=== PATIENT | male | born 1960 | race American Indian/Alaskan Native ===

== ENCOUNTER → 2019-06-15 15:11 | Outpatient (CLI) | payer MEDICARE, OTHER, SELFPAY ==
--- NOTE | 2019-06-15 15:16 | DI.RAD.S_ITS ---
PROCEDURE: XR LUMBAR SPINE MIN 4V INDICATIONS: Chronic progressive low back pain left lower extremity sympt TECHNIQUE: 5 total views of the lumbar spine were acquired, including bilateral oblique views. COMPARISON: [facility], MR, MR LUMBAR SPINE WO CON, 06/15/2019, 15:22. [facility], RG, XR L-SPINE 2-3V, 04/09/2019, 16:01. FINDINGS: Bones: 5 nonrib-bearing vertebrae are present. There is normal bony alignment. No vertebral body compression fractures. No suspicious bony lesions. The disc heights are well-preserved. Endplate irregularity and sclerosis are seen, which are most prominent at L4-L5. Lower lumbar spine facet arthropathy is seen. Soft tissues: Overlying bowel gas pattern is normal. No suspicious soft tissue calcifications. Oblique images: No pars defects. IMPRESSION: Age-appropriate lower lumbar spine degenerative changes are seen plain films. No pars defects are seen oblique images. Dictated by: Adi Bland M.D. on 06/15/2019 at 15:45 Approved by: Adi Bland M.D. on 06/15/2019 at 15:46
--- NOTE | 2019-06-15 15:16 | DI.MRI.S_ITS ---
PROCEDURE: MR LUMBAR SPINE WO CON INDICATIONS: Chronic progressive low back pain left lower extremity sympt TECHNIQUE: Noncontrast sagittal T1 spin echo and T2 fast echo, sagittal STIR, axial T1 and T2 fast spin echo through the lumbar spine. In cases with scoliosis, additional coronal T2 fast spin echo may be performed. COMPARISON: [facility], CR, XR LUMBAR SPINE MIN 4V, 06/15/2019, 15:47. FINDINGS: Image quality: Excellent. Alignment and Curvature: There is normal bony alignment. Bone Marrow: Marrow is of normal overall signal. No acute vertebral body compression fractures. Spinal Cord: Conus medullaris terminates at the L1 level. Visualized cord demonstrates normal signal and size. Paraspinous Soft Tissues: No paravertebral masses. T12-L1: No canal stenosis or foraminal stenosis. Facet joints are unremarkable. L1-L2: Normal appearance. L2-L3: No canal stenosis or foraminal stenosis. Mild facet hypertrophy. L3-L4: Prominent bilateral facet hypertrophy results in mild to moderate canal stenosis. There is moderate right foraminal narrowing with mild flattening deformity upon the exiting right L3 nerve root. L4-L5: Posterior disc bulge and facet and ligament hypertrophy result in moderate canal stenosis. There is mild bilateral foraminal narrowing. L5-S1: There is prominent bilateral facet hypertrophy. There is no canal stenosis. There is mild right foraminal narrowing. IMPRESSION: 1. Canal stenosis is mild to moderate at L3-4 and moderate at L4-5. 2. Multilevel facet arthropathy. 3. Moderate right foraminal narrowing at L3-L4. Dictated by: Raymond Balbuena M.D. on 06/16/2019 at 20:00 Approved by: Raymond Balbuena M.D. on 06/16/2019 at 20:04
== END ==
PROVIDERS: Visit Provider Physical Medicine & Rehabilitation
DX: M54.5 Low back pain (principal); M47.816 Spondylosis without myelopathy or radiculopathy, lumbar region; M48.061 Spinal stenosis, lumbar region without neurogenic claudication; G89.29 Other chronic pain; Z87.828 Personal history of other (healed) physical injury and trauma
CPT/HCPCS: 72110; 72148

== ENCOUNTER 2019-08-08 14:43 | Outpatient (CLI) | payer MEDICARE, OTHER, SELFPAY ==
[2019-08-08] VITALS (9 sets, daily range): BP systolic 131–153; BP diastolic 60–96; PULSE 90–102; RESP 16; O2SAT 96–100
--- NOTE | 2019-08-08 14:52 | DI.RAD.S_ITS ---
PROCEDURE: PAIN L/S TRANSFORAMINAL INJECT INDICATIONS: SPONDYLOSIS FINDINGS: Fluoroscopic spot filming was performed to verify placement of spinal needles at the L4-L5 level(s), as labeled on the films. Appropriate location(s) of the needle tip(s) was confirmed by injection of iodinated contrast. Dictated by: Tom Kat M.D. on 08/08/2019 at 17:36 Approved by: Tom Kat M.D. on 08/08/2019 at 17:36
[2019-08-08] MEDS: MIDAZOLAM 5 MG/5 ML VIAL IV (15:49)
[2019-08-08] MEDS: DEXAMETHASONE 10 MG/ML VIAL 20 MG INJ (15:56)
[2019-08-08] MEDS: BETAMETHASONE 30 MG/5 ML MDV 6 MG INJ (15:56)
[2019-08-08] MEDS: BUPIVACAINE 0.25% (PF) VIAL 2 ML INJ (15:56)
[2019-08-08] MEDS: IOPAMIDOL 15 ML VIAL 3 ML INJ (15:56)
--- NOTE | 2019-08-08 16:01 | P.PCN_ITS ---
Procedures Date/Time Date of procedure: 08/08/19 Time of procedure: 16:01 General Procedure description: PREOP DIAGNOSIS 1. FORMAINAL STENOSIS WITH LE SYMPTOMS POST OP DIAGNOSIS 1. FORMAINAL STENOSIS WITH LE SYMPTOMS PROCEDURES 1. FLUOROSCOPICALLY GUIDED CONTRAST CONTROLLED TRANSFORAMINAL EPIDURAL STEROID INJECTION - LEFT L4/5 PHYSICIAN: Vern Alston DO INDICATIONS: Derrick is referred for treatment of Foraminal Stenosis with Left LE Symptoms FINDINGS Foraminal Nerve Root Compression secondary to disc disease and facet hypertrophy DESCRIPTION OF PROCEDURE: Following review of allergy and review of potential side effects and complications, including, but not necessarily limited to, infection, allergic reaction, local tissue breakdown, stroke, temporary or permanent nerve injury, paralysis, and possible , the patient indicated that the patient understood and agreed to proceed. An informed consent document was signed by the patient, witnessed by a nurse, and placed in the patient's chart. Additionally, other treatment options including medications, modalities, and physical therapy were reviewed with the patient. After review of previous anaesthesic history and IV conscious sedation the patient was deemed safe to proceed with todays procedure with IV conscious sedation as ASA class II designation. Safety time-out was performed to confirm patient ID, procedure to be performed and site of procedure. IV sedation was accomplished with 2mg of Versed administered by the RN after DO order, titrated to patient comfort during the course of the procedure while the patient remained responsive to all verbal commands In the prone position following sterile prep and drape of the lumbar region, the left L4/5 posterior neuroforamen was identified fluoroscopically. The skin was anesthetized via a 25-gauge 1.5-inch needle with 1% lidocaine solution. At this point, a 25-gauge 3.5-inch spinal needle was atraumatically introduced and advanced under fluoroscopic guidance through the posterior left L4/5 ne uroforamen to approximately the anterior aspect of the canal. Depth was confirmed on lateral view. Following negative aspiration, injection of approximately 1.5 cc of Isovue 200 under live fluoroscopy in the AP view confirmed excellent flow along the nerve root, into the epidural space without vascular or intrathecal uptake observed Radiological data, including multiple fluoroscopic views of the lumbosacral spine, reveal a spinal needle at the left L4/5 posterior neuroforamen. Subsequent views show flow of contrast material flowing superiorly and inferiorly along the nerve root confirming epidural flow. Subsequently, a test dose of 1.5 cc of 1% lidocaine solution was administered and patient was observed for two minutes for signs or symptoms of complications, including abdominal pain, shortness of breath, bilateral upper or lower extremity weakness, nausea and vomiting, prior to steroid injection. At this point, a total of 3cc or 20mg of dexamethasone and 6mg of betamethasone was injected without incident. The procedure tolerated the procedure well without signs or symptoms of complications prior to transfer to the recovery area continued monitoring without incident. The patient was then transferred to the recovery area where they were observed for an appropriate time after the injection. The patient reported a VAS score of 7 prior to the procedure and a post- procedure VAS of 0. Total Fluoroscopy Time: 20.9 seconds Total Conscious Sedation Time: 24min POST OP INSTRUCTIONS The patient was provided a Pain Log to continue to record their response to the target-specific procedure prior to follow-up visit with their referring physician. Additionally, specific post-injection care instructions and a contact number to our office were provided if concerns arise regarding possible complications associated with the procedure are suspected. Vern Alston DO Complications: none
--- NOTE | 2019-08-08 16:10 | PC.NURSE ---
Post procedure note: Patient tolerated procedure well. Medicated per providers orders. VSS throughout. Able to sit up and transfer to wheelchair with stand by assist. Denied any numbness or tingling. Handoff report given to Rafa King RN. VSS on arrival. at chairside.
--- NOTE | 2019-08-08 16:12 | PC.NURSE ---
ACCEPTED CARE OF PT IN POST PROC AREA IN STABLE CONDITION
== END 2019-08-08 16:29 | disposition home or self-care (01) ==
LOC: RAD 14:51
PROVIDERS: Visit Provider Physical Medicine & Rehabilitation
DX: M48.061 Spinal stenosis, lumbar region without neurogenic claudication (principal); M51.16 Intervertebral disc disorders with radiculopathy, lumbar region
CPT/HCPCS: 64483; 99152; J0702; J1100; J2250; J3010

== ENCOUNTER → 2019-08-27 17:10 | Outpatient (CLI) | payer MEDICARE, OTHER, SELFPAY ==
--- NOTE | 2019-08-27 17:14 | DI.RAD.S_ITS ---
PROCEDURE: XR HIP W PEL IF DONE LT MIN 4V INDICATIONS: right groin pain TECHNIQUE: AP pelvis with lateral view(s) of the bilateral hips (3 total images). COMPARISON: None. FINDINGS: Bones: No fractures or dislocations. Pelvic ring appears intact. No suspicious bony lesions. Soft tissues: The visualized bowel gas pattern is normal. No suspicious soft tissue calcifications. IMPRESSION: Symmetric mild hip joint osteoarthritis. Dictated by: Jack Parker M.D. on 08/28/2019 at 9:16 Approved by: Jack Parker M.D. on 08/28/2019 at 9:17
== END ==
PROVIDERS: Visit Provider Registered Nurse
DX: M25.551 Pain in right hip (principal); M16.0 Bilateral primary osteoarthritis of hip; M51.26 Other intervertebral disc displacement, lumbar region; M47.817 Spondylosis without myelopathy or radiculopathy, lumbosacral region; G89.29 Other chronic pain; Z87.828 Personal history of other (healed) physical injury and trauma
CPT/HCPCS: 73522; 99213

== ENCOUNTER → 2020-02-08 11:16 | Outpatient (CLI) | payer MEDICARE, OTHER, SELFPAY ==
[2020-02-09 07:55] LABS: COVID19 Sendout Not Detected (Not Detect)
== END ==
PROVIDERS: Visit Provider Nurse Practitioner
DX: Z01.812 Encounter for preprocedural laboratory examination (principal)
CPT/HCPCS: 87635

== ENCOUNTER 2020-02-11 12:20 | Outpatient (CLI) | payer MEDICARE, OTHER, SELFPAY ==
[2020-02-11] VITALS (11 sets, daily range): BP systolic 133–165; BP diastolic 60–129; PULSE 81–87; RESP 13–18; TEMP 36.2; O2SAT 97–100
--- NOTE | 2020-02-11 12:24 | DI.RAD.S_ITS ---
PROCEDURE: PAIN L INTERLAMINAR/CAUDAL INJ INDICATIONS: SPODYLOSIS FINDINGS: Fluoroscopic spot filming was performed to verify placement of spinal needles at the L4-5 level(s), as labeled on the films. Appropriate location(s) of the needle tip(s) was confirmed by injection of iodinated contrast. IMPRESSION: Successful needle tip localization at the dorsal paramedian L4-5 interlaminar level for epidural steroid injection. Dictated by: Jack Parker M.D. on 02/11/2020 at 14:34 Approved by: Jack Parker M.D. on 02/11/2020 at 14:34
[2020-02-11] MEDS: fentaNYL 100 MCG/2 ML INJ 50 MCG IV (13:12)
[2020-02-11] MEDS: MIDAZOLAM 5 MG/5 ML VIAL IV (13:12)
[2020-02-11] MEDS: BETAMETHASONE 30 MG/5 ML MDV 6 MG INJ (13:26)
[2020-02-11] MEDS: BUPIVACAINE 0.25% (PF) VIAL 2 ML INJ (13:26)
[2020-02-11] MEDS: DEXAMETHASONE 10 MG/ML VIAL 20 MG INJ (13:26)
[2020-02-11] MEDS: IOPAMIDOL 15 ML VIAL 3 ML INJ (13:26)
--- NOTE | 2020-02-11 13:30 | P.PCN_ITS ---
Date/Time/Diagnoses Date of procedure: 02/11/20 Time of procedure: 13:30 Pre-procedure diagnosis: 1. HNP WITH RADICULAR FEATURES, 2. MULTILEVEL CENTRAL STENOSIS, Post-procedure diagnosis: same Procedure Notes Procedure: 1. FLUOROSCOPICALLY GUIDED CONTRAST CONTROLLED INTERLAMINAR EPIDURAL STEROID INJECTION -L4/5 Indications: Derrick is referred for treatment of HNP with R>L LE symptoms. Physician: Vern Alston Total Fluoroscopy time (seconds): 12 Total sedation minutes: 24 Complications: none Procedure in detail & Post-procedure care: FINDINGS Multilevel Central Spinal Stenosis with Nerve Root Compression DESCRIPTION OF PROCEDURE Fluoroscopically guided, contrast-controlled L4/5 translaminar epidural steroid injection. Following review of allergy and review of potential side effects and complications, including, but not necessarily limited to, infection, allergic reaction, local tissue breakdown, temporary as well as permanent nerve injury, paralysis, stroke and possible , the patient indicated that the patient understood and agreed to proceed. An informed consent document was signed by the patient, witnessed by a nurse, and placed in the patient's chart. Additionally, other treatment options including modalities, medications, and physical therapy were reviewed with the patient. After review of previous anaesthesic history and IV conscious sedation the patient was deemed safe to proceed with today?s procedure with IV conscious sedation as ASA class II designation. Safety time-out was performed to confirm patient ID, procedure to be performed and site of procedure. IV sedation was accomplished with a combination of 1mg of Versed and 50mcg of Fentanyl was administered by the RN after DO order, titrated to patient comfort during the course of the procedure while the patient remained responsive to all verbal commands In the prone position, following sterile prep and drape of the lumbar region, the L4/5 translaminar space was identified fluoroscopically. The skin was anesthetized via a 25-gauge, 1.5-inch needle with 1% lidocaine solution. At this point, a 22-gauge short bevel spinal needle was atraumatically introduced and advanced under fluoroscopic guidance into the region of the L4/5 translaminar space. Depth was confirmed on lateral view. Radiological data, including multiple fluoroscopic views of the lumbar spine, reveal a spinal needle at the L4/5 translaminar space. Lateral views then show placement of the needle in the epidural space. Subsequent views show contrast material flowing superiorly and inferiorly in the epidural space. No vascular or intrathecal uptake is observed. At this point, using loss of resistance technique with saline and air, the epidural space was entered. This was confirmed following negative aspiration with injection of approximately 1.5 cc of Isovue 200, showing excellent epidural flow without vascular or intrathecal uptake. At this point, 1 cc of 1% lidocaine solution combined with 3cc or 20mg of dexamethasone and 6mg betamethasone was injected without incident. The patient tolerated the procedure well without signs or symptoms of complications prior to transfer to the recovery area continued monitoring without incident. The patient was then transferred to the recovery area where they were observed for an appropriate period of time after the injection. The patient reported a VAS score of 10 prior to the procedure and a post- procedure VAS of 1. POST OP INSTRUCTIONS The patient was provided a Pain Log to continue to record their response to the target-specific procedure prior to follow-up visit with their referring physician. Additionally, specific post-injection care instructions and a contact number to our office were provided if concerns arise regarding possible complications associated with the procedure are suspected.
--- NOTE | 2020-02-11 13:58 | PC.NURSE ---
1335: pt returned to preproc room via wc, stable transfer from wc to chair. Resumed monitoring by LAYLA Aleman
--- NOTE | 2020-02-11 14:21 | PC.NURSE ---
VSS stable upon transfer to LAYLA Aleman in post procedure room. Tolerate procedure well. All IV Fent and Versed given by LAYLA Lewis, all other medications by Dr. Alston.
== END 2020-02-11 14:05 | disposition home or self-care (01) ==
PROVIDERS: Referring Provider Physical Medicine & Rehabilitation; Visit Provider Physical Medicine & Rehabilitation
DX: M51.16 Intervertebral disc disorders with radiculopathy, lumbar region (principal); M48.061 Spinal stenosis, lumbar region without neurogenic claudication
CPT/HCPCS: 62323; 99152; J0702; J1100; J2250; J3010

== ENCOUNTER → 2020-05-23 11:50 | Outpatient (CLI) | payer MEDICARE, OTHER, SELFPAY ==
[2020-05-25 05:57] LABS: COVID19 Sendout Not Detected (Not Detect)
== END ==
PROVIDERS: PCP Family Medicine; Visit Provider Physician Assistant
DX: Z01.812 Encounter for preprocedural laboratory examination (principal)
CPT/HCPCS: 87635

== ENCOUNTER 2020-05-26 09:32 | Outpatient (CLI) | payer MEDICARE, OTHER, SELFPAY ==
[2020-05-26] VITALS (7 sets, daily range): BP systolic 120–153; BP diastolic 66–87; PULSE 71–79; RESP 15–19; TEMP 36.4; O2SAT 98–100
--- NOTE | 2020-05-26 09:34 | DI.RAD.S_ITS ---
PROCEDURE: PAIN L INTERLAMINAR/CAUDAL INJ INDICATIONS: SPONDYLOSIS COMPARISON: [facility], XA, PAIN L INTERLAMINAR/CAUDAL INJ, 02/11/2020, 12:17. FINDINGS: Fluoroscopic spot filming was performed to verify placement of spinal needles at the L4-L5 interlaminar level(s), as labeled on the films. Appropriate location(s) of the needle tip(s) was confirmed by injection of iodinated contrast. IMPRESSION: Successful needle tip localization for L4-L5 translaminar epidural steroid injection. Dictated by: Jack Parker M.D. on 05/26/2020 at 11:14 Approved by: Jack Parker M.D. on 05/26/2020 at 11:14
[2020-05-26] MEDS: IOPAMIDOL 15 ML VIAL 3 ML INJ (10:36)
[2020-05-26] MEDS: DEXAMETHASONE 10 MG/ML VIAL 20 MG INJ (10:37)
[2020-05-26] MEDS: BUPIVACAINE 0.25% (PF) VIAL 2 ML INJ (10:37)
[2020-05-26] MEDS: BETAMETHASONE 30 MG/5 ML MDV 6 MG INJ (10:37)
--- NOTE | 2020-05-26 10:47 | P.PCN_ITS ---
Date/Time/Diagnoses Date of procedure: 05/26/20 Time of procedure: 10:47 Pre-procedure diagnosis: 1. HNP WITH RADICULAR FEATURES, 2. MULTILEVEL CENTRAL STENOSIS, Post-procedure diagnosis: same Procedure Notes Procedure: 1. FLUOROSCOPICALLY GUIDED CONTRAST CONTROLLED INTERLAMINAR EPIDURAL STEROID INJECTION -L4/5 Indications: Derrick is referred by Dr. Naik for treatment of Bilateral Foraminal Stenosis R>L LE symptoms. Physician: Vern Alston Total Fluoroscopy time (seconds): 8 Total sedation minutes: 0 Complications: none Procedure in detail & Post-procedure care: FINDINGS Multilevel Central Spinal Stenosis with Nerve Root Compression DESCRIPTION OF PROCEDURE Fluoroscopically guided, contrast-controlled L4/5 translaminar epidural steroid injection. Following review of allergy and review of potential side effects and complications, including, but not necessarily limited to, infection, allergic reaction, local tissue breakdown, temporary as well as permanent nerve injury, paralysis, stroke and possible , the patient indicated that the patient understood and agreed to proceed. An informed consent document was signed by the patient, witnessed by a nurse, and placed in the patient's chart. Additionally, other treatment options including modalities, medications, and physical therapy were reviewed with the patient. After review of previous anaesthesic history and IV conscious sedation the patient was deemed safe to proceed with today?s procedure with IV conscious sedation as ASA class II designation. Safety time-out was performed to confirm patient ID, procedure to be performed and site of procedure. IV sedation was deemed unnecessary and thus not administered by the RN after DO order, titrated to patient comfort during the course of the procedure while the patient remained responsive to all verbal commands In the prone position, following sterile prep and drape of the lumbar region, the L4/5 translaminar space was identified fluoroscopically. The skin was anesthetized via a 25-gauge, 1.5inch needle with 1% lidocaine solution. At this point, a 22-gauge short bevel spinal needle was atraumatically introduced and advanced under fluoroscopic guidance into the region of the L4/5 translaminar space. Depth was confirmed on lateral view. Radiological data, including multiple fluoroscopic views of the lumbar spine, reveal a spinal needle at the L4/5 translaminar space. Lateral views then show placement of the needle in the epidural space. Subsequent views show contrast material flowing superiorly and inferiorly in the epidural space. No vascular or intrathecal uptake is observed. At this point, using loss of resistance technique with saline and air, the epidural space was entered. This was confirmed following negative aspiration with injection of approximately 1.5cc of Isovue 200, showing excellent epidural flow without vascular or intrathecal uptake. At this point, 1cc of 1% lidocaine solution combined with 3cc or 20mg of dexamethasone and 6mg betamethasone was injected without incident. The patient tolerated the procedure well without signs or symptoms of complications prior to transfer to the recovery area continued monitoring without incident. The patient was then transferred to the recovery area where they were observed for an appropriate period of time after the injection. The patient reported a VAS score of 6 prior to the procedure and a post- procedure VAS of 0. POST OP INSTRUCTIONS The patient was provided a Pain Log to continue to record their response to the target-specific procedure prior to follow-up visit with their referring physician. Additionally, specific post-injection care instructions and a contact number to our office were provided if concerns arise regarding possible complications associated with the procedure are suspected.
== END 2020-05-26 11:00 | disposition home or self-care (01) ==
LOC: RAD 09:33
PROVIDERS: PCP Family Medicine; Referring Provider Physical Medicine & Rehabilitation; Visit Provider Physical Medicine & Rehabilitation
DX: M51.16 Intervertebral disc disorders with radiculopathy, lumbar region (principal); M48.061 Spinal stenosis, lumbar region without neurogenic claudication
CPT/HCPCS: 62323; 99152; J0702; J1100; J2250; J3010

== ENCOUNTER → 2020-08-31 11:34 | Outpatient (CLI) | payer MEDICARE, OTHER, SELFPAY ==
--- NOTE | 2020-08-31 11:36 | DI.RAD.S_ITS ---
PROCEDURE: XR LUMBAR SPINE MIN 4V INDICATIONS: low back pain TECHNIQUE: 4 views of the lumbar spine were acquired. COMPARISON: [facility], , XR LUMBAR SPINE MIN 4V, 06/15/2019, 15:47. FINDINGS: Bones: No fracture. Multilevel degenerative endplate sclerosis and spurring. Diffuse facet arthropathy. Trace retrolisthesis of L4 on L5, unchanged. Diffuse mild narrowing of the lumbar disc spaces. Bilateral hip joint degeneration. Soft tissues: Multiple sub 5 mm calcifications project in the region of the left kidney suggestive of nephrolithiasis Oblique images: No pars defects. IMPRESSION: Unchanged appearance of multilevel lumbar spondylosis and facet arthropathy since 06/15/19. Left nephrolithiasis Dictated by: Tom Kat M.D. on 08/31/2020 at 12:00 Approved by: Tom Kat M.D. on 08/31/2020 at 12:01
== END ==
PROVIDERS: PCP Family Medicine; Referring Provider Physical Medicine & Rehabilitation; Visit Provider Physical Medicine & Rehabilitation
DX: M47.816 Spondylosis without myelopathy or radiculopathy, lumbar region (principal); N20.0 Calculus of kidney; M51.26 Other intervertebral disc displacement, lumbar region; M47.817 Spondylosis without myelopathy or radiculopathy, lumbosacral region; M25.551 Pain in right hip; G89.29 Other chronic pain; M25.512 Pain in left shoulder; Z87.828 Personal history of other (healed) physical injury and trauma; M25.50 Pain in unspecified joint; Z68.33 Body mass index [BMI] 33.0-33.9, adult
CPT/HCPCS: 72110; 99213

== ENCOUNTER → 2020-10-06 13:32 | Outpatient (CLI) | payer MEDICARE, OTHER, SELFPAY ==
[2020-10-06 14:00] LABS: COVID19 -Nasal RAPID Negative (Negative)
== END ==
PROVIDERS: PCP Family Medicine; Visit Provider Physical Medicine & Rehabilitation
DX: Z20.822 Contact with and (suspected) exposure to COVID-19 (principal)
CPT/HCPCS: 87635; C9803

== ENCOUNTER 2020-10-08 12:30 | Outpatient (CLI) | payer MEDICARE, OTHER, SELFPAY ==
[2020-10-08 12:57] VITALS: BP 135/87; PULSE 84; RESP 19; TEMP 36.6; O2SAT 98
[2020-10-08 13:00] VITALS: BP 134/75; PULSE 86; RESP 16; O2SAT 97
[2020-10-08 13:05] VITALS: BP 130/70; PULSE 81; RESP 20; O2SAT 95
[2020-10-08] MEDS: IOPAMIDOL 15 ML VIAL 3 ML INJ (13:09)
[2020-10-08 13:10] VITALS: BP 132/76; PULSE 82; RESP 20; O2SAT 96
[2020-10-08] MEDS: BUPIVACAINE 0.25% (PF) VIAL 2 ML INJ (13:10)
[2020-10-08] MEDS: methylPREDNISolone acetate 80 MG/ML VIAL INJ (13:10)
[2020-10-08] MEDS: DEXAMETHASONE 10 MG/ML VIAL 20 MG INJ (13:10)
--- NOTE | 2020-10-08 13:18 | P.PCN_ITS ---
Date/Time/Diagnoses Date of procedure: 10/08/20 Time of procedure: 13:18 Pre-procedure diagnosis: 1. HNP WITH RADICULAR FEATURES, 2. MULTILEVEL CENTRAL STENOSIS, Post-procedure diagnosis: same Procedure Notes Procedure: 1. FLUOROSCOPICALLY GUIDED CONTRAST CONTROLLED INTERLAMINAR EPIDURAL STEROID INJECTION -L4/5 Indications: Derrick is referred by Dr. Naik for treatment of Bilateral Foraminal Stenosis R>L LE symptoms. Physician: Vern Alston Total Fluoroscopy time (seconds): 6 Total sedation minutes: 0 Complications: none Procedure in detail & Post-procedure care: FINDINGS Multilevel Central Spinal Stenosis with Nerve Root Compression DESCRIPTION OF PROCEDURE Fluoroscopically guided, contrast-controlled L4/5 translaminar epidural steroid injection. Following review of allergy and review of potential side effects and complications, including, but not necessarily limited to, infection, allergic reaction, local tissue breakdown, temporary as well as permanent nerve injury, paralysis, stroke and possible , the patient indicated that the patient understood and agreed to proceed. An informed consent document was signed by the patient, witnessed by a nurse, and placed in the patient's chart. Additionally, other treatment options including modalities, medications, and physical therapy were reviewed with the patient. After review of previous anaesthesic history and IV conscious sedation the patient was deemed safe to proceed with today?s procedure with IV conscious sedation as ASA class II designation. Safety time-out was performed to confirm patient ID, procedure to be performed and site of procedure. IV sedation was deemed unnecessary and thus not administered by the RN after DO order, titrated to patient comfort during the course of the procedure while the patient remained responsive to all verbal commands In the prone position, following sterile prep and drape of the lumbar region, the L4/5 translaminar space was identified fluoroscopically. The skin was anesthetized via a 25-gauge, 1.5inch needle with 1% lidocaine solution. At this point, a 22-gauge short bevel spinal needle was atraumatically introduced and advanced under fluoroscopic guidance into the region of the L4/5 translaminar space. Depth was confirmed on lateral view. Radiological data, including multiple fluoroscopic views of the lumbar spine, reveal a spinal needle at the L4/5 translaminar space. Lateral views then show placement of the needle in the epidural space. Subsequent views show contrast material flowing superiorly and inferiorly in the epidural space. No vascular or intrathecal uptake is observed. At this point, using loss of resistance technique with saline and air, the epidural space was entered. This was confirmed following negative aspiration with injection of approximately 1.5cc of Isovue 200, showing excellent epidural flow without vascular or intrathecal uptake. At this point, 1cc of 1% lidocaine solution combined with 3cc or 20mg of dexamethasone and 80mg depo medrol was injected without incident. The patient tolerated the procedure well without signs or symptoms of complications prior to transfer to the recovery area continued monitoring without incident. The patient was then transferred to the recovery area where they were observed for an appropriate period of time after the injection. The patient reported a VAS score of 7 prior to the procedure and a post- procedure VAS of 1. POST OP INSTRUCTIONS The patient was provided a Pain Log to continue to record their response to the target-specific procedure prior to follow-up visit with their referring physician. Additionally, specific post-injection care instructions and a contact number to our office were provided if concerns arise regarding possible complications associated with the procedure are suspected.
[2020-10-08 13:20] VITALS: BP 127/82; PULSE 85; RESP 19; O2SAT 98
--- NOTE | 2020-10-08 13:22 | DI.RAD.S_ITS ---
PROCEDURE: PAIN L INTERLAMINAR/CAUDAL INJ INDICATIONS: SPONDYLOSIS COMPARISON: [facility], XA, PAIN L INTERLAMINAR/CAUDAL INJ, 05/26/2020, 10:35. [facility], XA, PAIN L INTERLAMINAR/CAUDAL INJ, 02/11/2020, 12:17. FINDINGS: Fluoroscopic spot filming was performed to verify placement of spinal needles at the L4-L5 interlaminar notch level(s), as labeled on the films. Appropriate location(s) of the needle tip(s) was confirmed by injection of iodinated contrast. IMPRESSION: Successful L4-L5 midline interlaminar notch needle tip localization for epidural steroid injection. Dictated by: Jack Parker M.D. on 10/08/2020 at 15:40 Approved by: Jack Parker M.D. on 10/08/2020 at 15:41
[2020-10-08 13:30] VITALS: BP 131/79; PULSE 82; RESP 19; O2SAT 98
== END 2020-10-08 13:32 | disposition home or self-care (01) ==
LOC: RAD 12:31
PROVIDERS: PCP Family Medicine; Referring Provider Physical Medicine & Rehabilitation; Visit Provider Physical Medicine & Rehabilitation
DX: M51.16 Intervertebral disc disorders with radiculopathy, lumbar region (principal); M48.061 Spinal stenosis, lumbar region without neurogenic claudication
CPT/HCPCS: 62323; J0702; J1040; J1100; J2250; J3010

== ENCOUNTER → 2020-11-18 15:08 | Outpatient (CLI) | payer MEDICARE, OTHER, SELFPAY ==
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
--- NOTE | 2020-11-18 15:10 | DI.RAD.S_ITS ---
PROCEDURE: XR KNEE RT 3V INDICATIONS: right knee djd TECHNIQUE: 3 views of the knee were acquired. COMPARISON: None. FINDINGS: Bones: No fractures or dislocations. No suspicious bony lesions. Mild tricompartmental periarticular osteophyte formation. Soft tissues: No joint effusion. No suspicious soft tissue calcifications. IMPRESSION: Osteoarthritis. No acute fracture. No osseous lesion. If symptoms and/or clinical suspicion for pathology persist, further assessment with repeat, or advanced imaging (e.g., CT, MRI, or bone scan) may be helpful for further assessment. Dictated by: Melinda Landaverde M.D. on 11/18/2020 at 16:38 Approved by: Melinda Landvaerde M.D. on 11/18/2020 at 16:39
== END ==
PROVIDERS: PCP Family Medicine; Referring Provider Physical Medicine & Rehabilitation; Visit Provider Physical Medicine & Rehabilitation
DX: M17.11 Unilateral primary osteoarthritis, right knee (principal); M17.2 Bilateral post-traumatic osteoarthritis of knee; M25.512 Pain in left shoulder; M51.26 Other intervertebral disc displacement, lumbar region
CPT/HCPCS: 73562; 99214

== ENCOUNTER 2020-12-31 13:49 | Outpatient (CLI) | payer MEDICARE, OTHER, SELFPAY ==
[2020-12-31] VITALS (9 sets, daily range): BP systolic 152–181; BP diastolic 77–104; PULSE 81–91; RESP 13–20; TEMP 36.8; O2SAT 97–99
--- NOTE | 2020-12-31 13:51 | DI.RAD.S_ITS ---
PROCEDURE: PAIN L/S TRANSFORAMINAL INJECT INDICATIONS: SPONDYLOISIS COMPARISON: [facility], , PAIN L/S TRANSFORAMINAL INJECT, 08/08/2019, 15:44. FINDINGS: Fluoroscopic spot filming was performed to verify placement of spinal needles at the L3-L4 level(s), as labeled on the films. Appropriate location(s) of the needle tip(s) was confirmed by injection of iodinated contrast. Dictated by: Tom Kat M.D. on 12/31/2020 at 16:10 Approved by: Tom Kat M.D. on 12/31/2020 at 16:10
[2020-12-31] MEDS: fentaNYL 100 MCG/2 ML INJ 50 MCG IV (15:02)
[2020-12-31] MEDS: BUPIVACAINE 0.25% (PF) VIAL 2 ML INJ (15:06)
[2020-12-31] MEDS: MIDAZOLAM 5 MG/5 ML VIAL IV (15:07)
[2020-12-31] MEDS: DEXAMETHASONE 10 MG/ML VIAL 20 MG INJ (15:07)
[2020-12-31] MEDS: BETAMETHASONE 30 MG/5 ML MDV 6 MG INJ (15:07)
[2020-12-31] MEDS: IOPAMIDOL 15 ML VIAL 3 ML INJ (15:07)
--- NOTE | 2020-12-31 15:18 | P.PCN_ITS ---
Date/Time/Diagnoses Date of procedure: 12/31/20 Time of procedure: 15:19 Pre-procedure diagnosis: 1. FORAMINAL STENOSIS WITH LE SYMPTOMS Post-procedure diagnosis: same Procedure Notes Procedure: 1. FLUOROSCOPICALLY GUIDED CONTRAST CONTROLLED TRANSFORAMINAL EPIDURAL STEROID INJECTION - RIGHT L3/4 TFESI Indications: Derrick is referred by Dr. Naik for treatment of Foraminal Stenosis with right LE Symptoms Physician: Vern Alston Total Fluoroscopy time (seconds): 7 Total sedation minutes: 11 Complications: none Procedure in detail & Post-procedure care: FINDINGS Foraminal Nerve Root Compression secondary to disc disease and facet hypertrophy DESCRIPTION OF PROCEDURE Following review of allergy and review of potential side effects and complications, including, but not necessarily limited to, infection, allergic reaction, local tissue breakdown, stroke, temporary or permanent nerve injury, paralysis, and possible , the patient indicated that the patient understood and agreed to proceed. An informed consent document was signed by the patient, witnessed by a nurse, and placed in the patient's chart. Additionally, other treatment options including medications, modalities, and physical therapy were reviewed with the patient. After review of previous anaesthesic history and IV conscious sedation the patient was deemed safe to proceed with today?s procedure with IV conscious sedation as ASA class II designation. Safety time-out was performed to confirm patient ID, procedure to be performed and site of procedure. IV sedation was accomplished with a combination of 3mg of Versed and 50mcg of Fentanyl was administered by the RN after DO order, titrated to patient comfort during the course of the procedure while the patient remained responsive to all verbal com mands In the prone position following sterile prep and drape of the lumbar region, the right L3/4 posterior neuroforamen was identified fluoroscopically. The skin was anesthetized via a 25-gauge 1.5-inch needle with 1% lidocaine solution. At this point, a 25-gauge 3.5-inch spinal needle was atraumatically introduced and advanced under fluoroscopic guidance through the posterior right L3/4 neuro foramen to approximately the anterior aspect of the canal. Depth was confirmed on lateral view. Following negative aspiration, injection of approximately 1.5 cc of Isovue 200 under live fluoroscopy in the AP view confirmed excellent flow along the nerve root, into the epidural space without vascular or intrathecal uptake observed Radiological data, including multiple fluoroscopic views of the lumbosacral spine, reveal a spinal needle at the right L3/4 posterior neuroforamen. Subsequent views show flow of contrast material flowing superiorly and inferiorly along the nerve root confirming epidural flow. Subsequently, a test dose of 1.5 cc of 1% lidocaine solution was administered and patient was observed for two minutes for signs or symptoms of complications, including abdominal pain, shortness of breath, bilateral upper or lower extremity weakness, nausea and vomiting, prior to steroid injection. At this point, a total of 3cc or 20mg of dexamethasone and 6mg of betamethasone was injected without incident. The patient tolerated the procedure well without signs or symptoms of complications prior to transfer to the recovery area continued monitoring without incident. The patient was then transferred to the recovery area where they were observed for an appropriate time after the injection. The patient reported a VAS score of 7 prior to the procedure and a post-procedure VAS of 0. POST OP INSTRUCTIONS The patient was provided a Pain Log to continue to record their response to the target-specific procedure prior to follow-up visit with their referring physician. Additionally, specific post-injection care instructions and a contact number to our office were provided if concerns arise regarding possible complications associated with the procedure are suspected.
--- NOTE | 2020-12-31 15:55 | PC.NURSE ---
Patient reports that he had a fall 2 nights ago and hit the back of his head, reports that he did loose consciousness and that he has 14 joann. Reports that he went to the ER and that he does not have a concision. Denies headache or change in vision. Dr Alston is aware and continuing with treatment plan.
== END 2020-12-31 15:45 | disposition home or self-care (01) ==
PROVIDERS: PCP Family Medicine; Referring Provider Physical Medicine & Rehabilitation; Visit Provider Physical Medicine & Rehabilitation
DX: M48.061 Spinal stenosis, lumbar region without neurogenic claudication (principal); M51.16 Intervertebral disc disorders with radiculopathy, lumbar region
CPT/HCPCS: 64483; 99152; J0702; J1100; J2250; J3010

== ENCOUNTER 2021-03-16 15:03 | Outpatient (CLI) | payer MEDICARE, OTHER, MEDICAID, SELFPAY ==
[2021-03-16] VITALS (8 sets, daily range): BP systolic 107–138; BP diastolic 71–81; PULSE 78–85; RESP 12–21; TEMP 36.2; O2SAT 94–100
--- NOTE | 2021-03-16 15:07 | DI.RAD.S_ITS ---
PROCEDURE: PAIN L INTERLAMINAR/CAUDAL INJ INDICATIONS: SPONDYLOSIS COMPARISON: [facility], XA, PAIN L INTERLAMINAR/CAUDAL INJ, 10/08/2020, 13:06. FINDINGS: Fluoroscopic spot filming was performed to verify placement of spinal needles at the right L4-5 level(s), as labeled on the films. Appropriate location(s) of the needle tip(s) was confirmed by injection of iodinated contrast. IMPRESSION: Intraoperative fluoroscopy for right L4-5 translaminar epidural steroid injection. Dictated by: Mera Trejo M.D. on 03/16/2021 at 17:14 Approved by: Mera Trejo M.D. on 03/16/2021 at 17:14
[2021-03-16] MEDS: fentaNYL 100 MCG/2 ML INJ IV (16:09)
[2021-03-16] MEDS: MIDAZOLAM 5 MG/5 ML VIAL IV (16:09)
[2021-03-16] MEDS: IOPAMIDOL 15 ML VIAL 3 ML INJ (16:13)
[2021-03-16] MEDS: BUPIVACAINE 0.25% (PF) VIAL 5 ML SUBCUT (16:13)
[2021-03-16] MEDS: DEXAMETHASONE 10 MG/ML VIAL 20 MG INJ (16:14)
[2021-03-16] MEDS: BETAMETHASONE 30 MG/5 ML MDV 6 MG INJ (16:15)
--- NOTE | 2021-03-16 16:20 | P.PCN_ITS ---
Date/Time/Diagnoses Date of procedure: 03/16/21 Time of procedure: 16:20 Pre-procedure diagnosis: 1. HNP WITH RADICULAR FEATURES, 2. MULTILEVEL CENTRAL STENOSIS, Post-procedure diagnosis: same Procedure Notes Procedure: 1. FLUOROSCOPICALLY GUIDED CONTRAST CONTROLLED INTERLAMINAR EPIDURAL STEROID INJECTION -L4/5 Indications: Derrick is referred by Dr. Naik for treatment of Bilateral Foraminal Stenosis R>L LE symptoms. Physician: Vern Alston Total Fluoroscopy time (seconds): 4 Total sedation minutes: 6 Complications: none Procedure in detail & Post-procedure care: FINDINGS Multilevel Central Spinal Stenosis with Nerve Root Compression DESCRIPTION OF PROCEDURE Fluoroscopically guided, contrast-controlled L4/5 translaminar epidural steroid injection. Following review of allergy and review of potential side effects and complications, including, but not necessarily limited to, infection, allergic reaction, local tissue breakdown, temporary as well as permanent nerve injury, paralysis, stroke and possible , the patient indicated that the patient understood and agreed to proceed. An informed consent document was signed by the patient, witnessed by a nurse, and placed in the patient's chart. Additionally, other treatment options including modalities, medications, and physical therapy were reviewed with the patient. After review of previous anaesthesic history and IV conscious sedation the patient was deemed safe to proceed with today?s procedure with IV conscious sedation as ASA class II designation. Safety time-out was performed to confirm patient ID, procedure to be performed and site of procedure. IV sedation was accomplished with a combination of 2mg of Versed and 50mcg of Fentanyl was administered by the RN after DO order, titrated to patient comfort during the course of the procedure while the patient remained responsive to all verbal commands In the prone position, following sterile prep and drape of the lumbar region, the L4/5 translaminar space was identified fluoroscopically. The skin was anesthetized via a 25-gauge, 1.5inch needle with 1% lidocaine solution. At this point, a 22-gauge short bevel spinal needle was atraumatically introduced and advanced under fluoroscopic guidance into the region of the L4/5 translaminar space. Depth was confirmed on lateral view. Radiological data, including multiple fluoroscopic views of the lumbar spine, reveal a spinal needle at the L4/5 translaminar space. Lateral views then show placement of the needle in the epidural space. Subsequent views show contrast material flowing superiorly and inferiorly in the epidural space. No vascular or intrathecal uptake is observed. At this point, using loss of resistance technique with saline and air, the epidural space was entered. This was confirmed following negative aspiration with injection of approximately 1.5cc of Isovue 200, showing excellent epidural flow without vascular or intrathecal uptake. At this point, 1cc of 1% lidocaine solution combined with 3cc or 20mg of dexamethasone and 6mg betamethasone was injected without incident. The patient tolerated the procedure well without signs or symptoms of complications prior to transfer to the recovery area continued monitoring without incident. The patient was then transferred to the recovery area where they were observed for an appropriate period of time after the injection. The patient reported a VAS score of 6 prior to the procedure and a post- procedure VAS of 0. POST OP INSTRUCTIONS The patient was provided a Pain Log to continue to record their response to the target-specific procedure prior to follow-up visit with their referring physician. Additionally, specific post-injection care instructions and a contact number to our office were provided if concerns arise regarding possible complications associated with the procedure are suspected.
== END 2021-03-16 16:45 | disposition home or self-care (01) ==
LOC: RAD 15:06
PROVIDERS: PCP Family Medicine; Referring Provider Physical Medicine & Rehabilitation; Visit Provider Physical Medicine & Rehabilitation
DX: M51.16 Intervertebral disc disorders with radiculopathy, lumbar region (principal); M48.061 Spinal stenosis, lumbar region without neurogenic claudication
CPT/HCPCS: 62323; J0702; J1100; J2250; J3010

== ENCOUNTER → 2021-06-14 13:17 | Outpatient (CLI) | payer MEDICARE, OTHER, SELFPAY ==
[2021-06-14 15:04] LABS: COVID19 -Nasal RAPID Negative (Negative)
== END ==
PROVIDERS: PCP Family Medicine; Visit Provider Physical Medicine & Rehabilitation
DX: Z20.822 Contact with and (suspected) exposure to COVID-19 (principal)
CPT/HCPCS: 87635; C9803

== ENCOUNTER 2021-06-15 13:33 | Outpatient (CLI) | payer MEDICARE, OTHER, SELFPAY ==
[2021-06-15] VITALS (7 sets, daily range): BP systolic 101–120; BP diastolic 69–81; PULSE 70–81; RESP 11–21; TEMP 36.2; O2SAT 95–99
--- NOTE | 2021-06-15 13:36 | DI.RAD.S_ITS ---
PROCEDURE: PAIN L INTERLAMINAR/CAUDAL INJ INDICATIONS: SPONDYLOSIS COMPARISON: [facility], , PAIN L INTERLAMINAR/CAUDAL INJ, 03/16/2021, 16:11. FINDINGS: Fluoroscopic spot filming was performed to verify placement of a spinal needle at the L4-L5 level, as labeled on the films. Appropriate location of the needle tip was confirmed by injection of iodinated contrast. IMPRESSION: Intraprocedural examination within normal limits. Dictated by: Adi Bland M.D. on 06/15/2021 at 13:49 Approved by: Adi Bland M.D. on 06/15/2021 at 13:50
[2021-06-15] MEDS: MIDAZOLAM 5 MG/5 ML VIAL IV (14:22)
[2021-06-15] MEDS: IOPAMIDOL 15 ML VIAL 3 ML INJ (14:29)
[2021-06-15] MEDS: BETAMETHASONE 30 MG/5 ML MDV 12 MG INJ (14:29)
[2021-06-15] MEDS: BUPIVACAINE 0.25% (PF) VIAL 2 ML INJ (14:29)
[2021-06-15] MEDS: DEXAMETHASONE 10 MG/ML VIAL 20 MG INJ (14:30)
--- NOTE | 2021-06-15 14:36 | P.PCN_ITS ---
Date/Time/Diagnoses Date of procedure: 06/15/21 Time of procedure: 14:36 Pre-procedure diagnosis: 1. HNP WITH RADICULAR FEATURES, 2. MULTILEVEL CENTRAL STENOSIS, Post-procedure diagnosis: same Procedure Notes Procedure: 1. FLUOROSCOPICALLY GUIDED CONTRAST CONTROLLED INTERLAMINAR EPIDURAL STEROID INJECTION -L4/5 Indications: Derrick is referred by Dr. Naik for treatment of Bilateral Foraminal Stenosis R>L LE symptoms. Physician: Vern Alston Total Fluoroscopy time (seconds): 4 Total sedation minutes: 7 Complications: none Procedure in detail & Post-procedure care: FINDINGS Multilevel Central Spinal Stenosis with Nerve Root Compression DESCRIPTION OF PROCEDURE Fluoroscopically guided, contrast-controlled L4/5 translaminar epidural steroid injection. Following review of allergy and review of potential side effects and complications, including, but not necessarily limited to, infection, allergic reaction, local tissue breakdown, temporary as well as permanent nerve injury, paralysis, stroke and possible , the patient indicated that the patient understood and agreed to proceed. An informed consent document was signed by the patient, witnessed by a nurse, and placed in the patient's chart. Additionally, other treatment options including modalities, medications, and physical therapy were reviewed with the patient. After review of previous anaesthesic history and IV conscious sedation the patient was deemed safe to proceed with today?s procedure with IV conscious sedation as ASA class II designation. Safety time-out was performed to confirm patient ID, procedure to be performed and site of procedure. IV sedation was accomplished with a combination of 2mg of Versed was administered by the RN after DO order, titrated to patient comfort during the course of the procedure while the patient remained responsive to all verbal commands In the prone position, following sterile prep and drape of the lumbar region, the L4/5 translaminar space was identified fluoroscopically. The skin was anesthetized via a 25-gauge, 1.5inch needle with 1% lidocaine solution. At this point, a 22-gauge short bevel spinal needle was atraumatically introduced and advanced under fluoroscopic guidance into the region of the L4/5 translaminar space. Depth was confirmed on lateral view. Radiological data, including multiple fluoroscopic views of the lumbar spine, reveal a spinal needle at the L4/5 translaminar space. Lateral views then show placement of the needle in the epidural space. Subsequent views show contrast material flowing superiorly and inferiorly in the epidural space. No vascular or intrathecal uptake is observed. At this point, using loss of resistance technique with saline and air, the epidural space was entered. This was confirmed following negative aspiration with injection of approximately 1.5cc of Isovue 200, showing excellent epidural flow without vascular or intrathecal uptake. At this point, 1cc of 1% lidocaine solution combined with 4cc or 20mg of dexamethasone and 12mg betamethasone was injected without incident. The patient tolerated the procedure well without signs or symptoms of complications prior to transfer to the recovery area continued monitoring without incident. The patient was then transferred to the recovery area where they were observed for an appropriate period of time after the injection. The patient reported a VAS score of 6 prior to the procedure and a post- procedure VAS of 0. POST OP INSTRUCTIONS The patient was provided a Pain Log to continue to record their response to the target-specific procedure prior to follow-up visit with their referring physician. Additionally, specific post-injection care instructions and a contact number to our office were provided if concerns arise regarding possible complications associated with the procedure are suspected.
== END 2021-06-15 15:10 | disposition home or self-care (01) ==
LOC: RAD 13:33
PROVIDERS: PCP Family Medicine; Referring Provider Physical Medicine & Rehabilitation; Visit Provider Physical Medicine & Rehabilitation
DX: M51.16 Intervertebral disc disorders with radiculopathy, lumbar region (principal); M48.061 Spinal stenosis, lumbar region without neurogenic claudication
CPT/HCPCS: 62323; J0702; J1100; J2250; J3010

== ENCOUNTER → 2021-10-04 10:59 | Outpatient (CLI) | payer MEDICARE, OTHER, SELFPAY ==
[2021-10-04 14:25] LABS: COVID19 -Nasal RAPID Negative (Negative)
== END ==
PROVIDERS: PCP Family Medicine; Referring Provider Physical Medicine & Rehabilitation; Visit Provider Physical Medicine & Rehabilitation
DX: Z20.822 Contact with and (suspected) exposure to COVID-19 (principal)
CPT/HCPCS: 87635; C9803

== ENCOUNTER 2021-10-05 08:55 | Outpatient (CLI) | payer MEDICARE, OTHER, SELFPAY ==
[2021-10-05] VITALS (9 sets, daily range): BP systolic 111–133; BP diastolic 64–80; PULSE 73–79; RESP 12–19; TEMP 36.5; O2SAT 95–99
--- NOTE | 2021-10-05 08:57 | DI.RAD.S_ITS ---
PROCEDURE: PAIN L INTERLAMINAR/CAUDAL INJ INDICATIONS: SPONDYLOSIS COMPARISON: [facility], XA, PAIN L INTERLAMINAR/CAUDAL INJ, 06/15/2021, 15:25. FINDINGS: Fluoroscopic spot filming was performed to verify placement of spinal needles at the L4-L5 level(s), as labeled on the films. IMPRESSION: Imaging guidance utilized for pain injection by the referring pain physician at the level of L4-L5. Dictated by: Raymond Balbuena M.D. on 10/05/2021 at 11:58 Approved by: Raymond Balbuena M.D. on 10/05/2021 at 11:59
[2021-10-05] MEDS: MIDAZOLAM 5 MG/5 ML VIAL IV (10:09)
[2021-10-05] MEDS: IOPAMIDOL 15 ML VIAL 3 ML INJ (10:12)
[2021-10-05] MEDS: BETAMETHASONE 30 MG/5 ML MDV 6 MG INJ (10:13)
[2021-10-05] MEDS: BUPIVACAINE 0.25% (PF) VIAL 2 ML INJ (10:13)
[2021-10-05] MEDS: DEXAMETHASONE 10 MG/ML VIAL 20 MG INJ (10:13)
--- NOTE | 2021-10-05 10:21 | P.PCN_ITS ---
Date/Time/Diagnoses Date of procedure: 10/05/21 Time of procedure: 10:21 Pre-procedure diagnosis: 1. HNP WITH RADICULAR FEATURES, 2. MULTILEVEL CENTRAL STENOSIS, Post-procedure diagnosis: same Procedure Notes Procedure: 1. FLUOROSCOPICALLY GUIDED CONTRAST CONTROLLED INTERLAMINAR EPIDURAL STEROID INJECTION -L4/5 Indications: Derrick is referred by Dr. Corral for treatment of Bilateral Foraminal Stenosis R>L LE symptoms. Physician: Vern Alston Total Fluoroscopy time (seconds): 4 Total sedation minutes: 6 Complications: none Procedure in detail & Post-procedure care: FINDINGS Multilevel Central Spinal Stenosis with Nerve Root Compression DESCRIPTION OF PROCEDURE Fluoroscopically guided, contrast-controlled L4/5 translaminar epidural steroid injection. Following review of allergy and review of potential side effects and complications, including, but not necessarily limited to, infection, allergic reaction, local tissue breakdown, temporary as well as permanent nerve injury, paralysis, stroke and possible , the patient indicated that the patient understood and agreed to proceed. An informed consent document was signed by the patient, witnessed by a nurse, and placed in the patient's chart. Additionally, other treatment options including modalities, medications, and physical therapy were reviewed with the patient. After review of previous anaesthesic history and IV conscious sedation the patient was deemed safe to proceed with today?s procedure with IV conscious sedation as ASA class II designation. Safety time-out was performed to confirm patient ID, procedure to be performed and site of procedure. IV sedation was accomplished with a combination of 2mg of Versed was administered by the RN after DO order, titrated to patient comfort during the course of the procedure while the patient remained responsive to all verbal commands In the prone position, following sterile prep and drape of the lumbar region, the L4/5 translaminar space was identified fluoroscopically. The skin was anesthetized via a 25-gauge, 1.5inch needle with 1% lidocaine solution. At this point, a 22-gauge short bevel spinal needle was atraumatically introduced and advanced under fluoroscopic guidance into the region of the L4/5 translaminar space. Depth was confirmed on lateral view. Radiological data, including multiple fluoroscopic views of the lumbar spine, reveal a spinal needle at the L4/5 translaminar space. Lateral views then show placement of the needle in the epidural space. Subsequent views show contrast material flowing superiorly and inferiorly in the epidural space. No vascular or intrathecal uptake is observed. At this point, using loss of resistance technique with saline and air, the epidural space was entered. This was confirmed following negative aspiration with injection of approximately 1.5cc of Isovue 200, showing excellent epidural flow without vascular or intrathecal uptake. At this point, 1cc of 1% lidocaine solution combined with 3cc or 20mg of dexamethasone and 6mg betamethasone was injected without incident. The patient tolerated the procedure well without signs or symptoms of complications prior to transfer to the recovery area continued monitoring without incident. The patient was then transferred to the recovery area where they were observed for an appropriate period of time after the injection. The patient reported a VAS score of 6 prior to the procedure and a post- procedure VAS of 0. POST OP INSTRUCTIONS The patient was provided a Pain Log to continue to record their response to the target-specific procedure prior to follow-up visit with their referring physician. Additionally, specific post-injection care instructions and a contact number to our office were provided if concerns arise regarding possible complications associated with the procedure are suspected.
== END 2021-10-05 10:49 | disposition home or self-care (01) ==
PROVIDERS: PCP Family Medicine; Referring Provider Physical Medicine & Rehabilitation; Visit Provider Physical Medicine & Rehabilitation
DX: M51.16 Intervertebral disc disorders with radiculopathy, lumbar region (principal); M48.061 Spinal stenosis, lumbar region without neurogenic claudication
CPT/HCPCS: 62323; J0702; J1100; J2250

== ENCOUNTER → 2021-10-27 12:55 | Outpatient (CLI) | payer MEDICARE, MEDICAID, SELFPAY ==
--- NOTE | 2021-10-27 13:03 | DI.RAD.S_ITS ---
PROCEDURE: XR SHOULDER LT MIN 2V INDICATIONS: LEFT SHOULDER PAIN TECHNIQUE: 3 views of the shoulder were acquired. COMPARISON: None. FINDINGS: Bones: No fractures or dislocations. No suspicious bony lesions. Visualized ribs appear intact. Moderate acromioclavicular joint osteoarthritis. Mild glenohumeral joint osteoarthritis. Soft tissues: No suspicious soft tissue calcifications. IMPRESSION: Acromioclavicular and glenohumeral joint osteoarthritis. Dictated by: Marlys Robertson MD, PhD on 10/27/2021 at 15:20 Approved by: Marlys Robertson MD, PhD on 10/27/2021 at 15:27
== END ==
PROVIDERS: PCP Family Medicine; Referring Provider Physical Medicine & Rehabilitation; Visit Provider Physical Medicine & Rehabilitation
DX: M19.012 Primary osteoarthritis, left shoulder (principal); M25.512 Pain in left shoulder; M17.2 Bilateral post-traumatic osteoarthritis of knee; M51.26 Other intervertebral disc displacement, lumbar region; M47.817 Spondylosis without myelopathy or radiculopathy, lumbosacral region; Z87.828 Personal history of other (healed) physical injury and trauma
CPT/HCPCS: 20606; 73030; 99214; J0702

== ENCOUNTER 2022-02-08 12:00 | Outpatient (CLI) | payer MEDICARE, MEDICAID, SELFPAY ==
[2022-02-08] VITALS (9 sets, daily range): BP systolic 102–130; BP diastolic 61–88; PULSE 74–82; RESP 12–20; TEMP 36.4; O2SAT 96–99
--- NOTE | 2022-02-08 12:02 | DI.RAD.S_ITS ---
PROCEDURE: PAIN L/S FACET INJ/BLK 1ST GL COMPARISON: None. INDICATIONS: SPONDYLOSIS IMPRESSION: Single fluoroscopic image demonstrates right medial branch block at L3, L4, and L5. Dictated by: Peggy Crisostomo M.D. on 02/08/2022 at 15:54 Approved by: Peggy Crisostomo M.D. on 02/08/2022 at 15:55
[2022-02-08 12:39] LABS: COVID19 -Nasal RAPID Negative (Negative)
[2022-02-08] MEDS: MIDAZOLAM 2 MG/2 ML VIAL 4 MG IV (13:24)
[2022-02-08] MEDS: IOPAMIDOL 15 ML VIAL 3 ML INJ (13:26)
[2022-02-08] MEDS: BUPIVACAINE 0.5% (PF) VIAL 5 ML INJ (13:26)
[2022-02-08] MEDS: LIDOCAINE 1% (PF) 5 ML INJ (13:27)
--- NOTE | 2022-02-08 13:37 | P.PCN_ITS ---
Date/Time/Diagnoses Date of procedure: 02/08/22 Time of procedure: 13:38 Pre-procedure diagnosis: FACET ARTHROPATHY Post-procedure diagnosis: same Procedure Notes Procedure: 1. BILATERAL L3, L4 AND L5 DIAGNOSTIC MB BLOCKS Indications: Derrick is referred by Dr. Corral for treatment of Bilateral Axial LBP. Physician: Vern Alston Total Fluoroscopy time (seconds): 15 Total sedation minutes: 10 Complications: none Procedure in detail & Post-procedure care: DESCRIPTION OF PROCEDURE Fluoroscopically guided, contrast-controlled bilateral L3, L4 AND L5 medial branch blocks with 0.5cc of 0.5% Marcaine. Following review of allergy and review of potential side effects and complications, including, but not necessarily limited to, infection, allergic reaction, local tissue breakdown, nerve injury, paralysis, stroke and possible , the patient indicated that the patient understood and agreed to proceed. An informed consent document was signed by the patient, witnessed by a nurse, and placed in the patient's chart. After review of previous anaesthesic history and IV conscious sedation the patient was deemed safe to proceed with today's procedure with IV conscious sedation as ASA class II designation. Safety time-out was performed to confirm patient ID, procedure to be performed and site of procedure. IV sedation was accomplished with a combination of 4mg of Versed was administered by the RN after DO order, titrated to patient comfort during the course of the procedure while the patient remained responsive to all verbal commands In the prone position, following sterile prep and drape of the lumbar region, the right L3, L4 AND L5 anatomical location of the medial branch of the dorsal ramus was identified fluoroscopically. Subsequently an anesthetic skin wheal using 1% lidocaine solution was initiated at each of the anatomical spots. Subsequently then a 22-gauge 3.5-inch spinal needle was atraumatically introduced and advanced under fluoroscopic guidance at each of the corresponding sites at the right L3, L4 and L5 MB. After negative aspiration, 0.2cc of Isovue 200 was injected, confirming placement without vascular or intrathecal uptake. Subsequently then 0.5cc of 0.5% Marcaine solution was injected at each of the corresponding sites at the right L3, L4 and L5 medial branch locations. The identical procedure was replicated on the left. The patient tolerated the pro cedure well without signs or symptoms of complications. The patient tolerated the procedure well without signs or symptoms of complications prior to transfer to the recovery area continued monitoring without incident. Post-procedure, the patient was monitored initiating provocative activities to measure the amount of relief from block of the facetogenic pain. The patient reported a VAS of 7 prior to the procedure and a post-procedure VAS of 1. It has been a pleasure to assist in the diagnostic and therapeutic care of your patient. POST OP INSTRUCTIONS The patient was provided with a Pain Log to complete over the next several hours and subsequent days prior to the patient's follow up with the ordering physician. If the patient has executive marketing assistant relief to the solution applied, then they may be a candidate for medial branch rhizotomy. The patient is aware, was provided, once again, with a Pain Log and will follow up with the referring physician for review and clinical correlation
== END 2022-02-08 14:02 | disposition home or self-care (01) ==
LOC: RAD 12:02
PROVIDERS: PCP Family Medicine; Referring Provider Physical Medicine & Rehabilitation; Visit Provider Physical Medicine & Rehabilitation
DX: M47.816 Spondylosis without myelopathy or radiculopathy, lumbar region (principal); Z20.822 Contact with and (suspected) exposure to COVID-19
CPT/HCPCS: 64493; 64494; 64495; 87635; 99152; J2250

== ENCOUNTER 2022-05-31 12:16 | Outpatient (CLI) | payer MEDICARE, OTHER, MEDICAID, SELFPAY ==
[2022-05-31] VITALS (7 sets, daily range): BP systolic 107–138; BP diastolic 58–82; PULSE 82–88; RESP 15–20; TEMP 36.7; O2SAT 97–98
--- NOTE | 2022-05-31 12:22 | DI.RAD.S_ITS ---
PROCEDURE: PAIN L/S FACET INJ/BLK 1ST LG COMPARISON: [facility], XA, PAIN L/S FACET INJ/BLK 1ST LG, 02/08/2022, 13:24. INDICATIONS: SPONDYLOSIS FINDINGS: 6 intraoperative fluoroscopic images obtained. Bilateral L3, L4, L5 medial branch block. IMPRESSION: Intraprocedural fluoroscopy was provided for guidance and anatomical localization. Please see the procedure report for further details. Dictated by: Harrison Anna M.D. on 05/31/2022 at 20:56 Approved by: Harrison Anna M.D. on 05/31/2022 at 20:58
[2022-05-31] MEDS: MIDAZOLAM 2 MG/2 ML VIAL 4 MG IV (13:40)
[2022-05-31] MEDS: BUPIVACAINE 0.5% (PF) VIAL 5 ML INJ (13:43)
[2022-05-31] MEDS: IOPAMIDOL 15 ML VIAL 3 ML INJ (13:44)
[2022-05-31] MEDS: LIDOCAINE 1% 20 ML 5 ML INJ (13:57)
--- NOTE | 2022-05-31 13:58 | P.PCN_ITS ---
Date/Time/Diagnoses Date of procedure: 05/31/22 Time of procedure: 13:58 Pre-procedure diagnosis: 1. FACET ARTHROPATHY Post-procedure diagnosis: same Procedure Notes Procedure: 1. BILATERAL L3, L4 AND L5 DIAGNOSTIC MB BLOCKS Indications: Derrick is referred by Dr. Corral for treatment of Bilateral Axial LBP. Physician: Vern Alston Total Fluoroscopy time (seconds): 12 Total sedation minutes: 16 Complications: none Procedure in detail & Post-procedure care: DESCRIPTION OF PROCEDURE Fluoroscopically guided, contrast-controlled bilateral L3, L4 AND L5 medial branch blocks with 0.5cc of 2% Lidocaine. Following review of allergy and review of potential side effects and complications, including, but not necessarily limited to, infection, allergic reaction, local tissue breakdown, nerve injury, paralysis, stroke and possible , the patient indicated that the patient understood and agreed to proceed. An informed consent document was signed by the patient, witnessed by a nurse, and placed in the patient's chart. After review of previous anaesthesic history and IV conscious sedation the patient was deemed safe to proceed with today's procedure with IV conscious sedation as ASA class II designation. Safety time-out was performed to confirm patient ID, procedure to be performed and site of procedure. IV sedation was accomplished with a combination of 4mg of Versed was administered by the RN after DO order, titrated to patient comfort during the course of the procedure while the patient remained responsive to all verbal commands In the prone position, following sterile prep and drape of the lumbar region, the right L3, L4 AND L5 anatomical location of the medial branch of the dorsal ramus was identified fluoroscopically. Subsequently an anesthetic skin wheal using 1% lidocaine solution was initiated at each of the anatomical spots. Subsequently then a 22-gauge 3.5-inch spinal needle was atraumatically introduced and advanced under fluoroscopic guidance at each of the corresponding sites at the right L3, L4 and L5 MB. After negative aspiration, 0.2cc of Isovue 200 was injected, confirming placement without vascular or intrathecal uptake. Subsequently then 0.5cc of 2% Lidocaine solution was injected at each of the corresponding sites at the right L3, L4 and L5 medial branch locations. The identical procedure was replicated on the left. The patient tolerated the p rocedure well without signs or symptoms of complications. The patient tolerated the procedure well without signs or symptoms of complications prior to transfer to the recovery area continued monitoring without incident. Post-procedure, the patient was monitored initiating provocative activities to measure the amount of relief from block of the facetogenic pain. The patient reported a VAS of 7 prior to the procedure and a post-procedure VAS of 1. It has been a pleasure to assist in the diagnostic and therapeutic care of your patient. POST OP INSTRUCTIONS The patient was provided with a Pain Log to complete over the next several hours and subsequent days prior to the patient's follow up with the ordering physician. If the patient has energy consultant relief to the solution applied, then they may be a candidate for medial branch rhizotomy. The patient is aware, was provided, once again, with a Pain Log and will follow up with the referring physician for review and clinical correlation
== END 2022-05-31 14:18 | disposition home or self-care (01) ==
PROVIDERS: PCP Family Medicine; Referring Provider Physical Medicine & Rehabilitation; Visit Provider Physical Medicine & Rehabilitation
DX: M47.816 Spondylosis without myelopathy or radiculopathy, lumbar region (principal)
CPT/HCPCS: 64493; 64494; 99152; J2250

== ENCOUNTER 2022-09-13 10:39 | Outpatient (CLI) | payer MEDICARE, OTHER, MEDICAID, SELFPAY ==
[2022-09-13] VITALS (14 sets, daily range): BP systolic 95–133; BP diastolic 64–92; PULSE 71–76; RESP 11–41; TEMP 35.9; O2SAT 94–100
--- NOTE | 2022-09-13 10:41 | DI.RAD.S_ITS ---
PROCEDURE: PAIN L/S MED/LAT N RFA BILAT INDICATIONS: SPONDYLOSIS COMPARISON: None. FINDINGS: Fluoroscopic spot filming was performed to verify placement of spinal needles at the bilateral L3, L4 and L5 pedicle level(s), as labeled on the films. Appropriate location(s) of the needle tip(s) was confirmed by injection of iodinated contrast. IMPRESSION: Bilateral L3, L4 and L5 zhane-pedicle needle placement for bilateral L3, L4 and L5 medial nerve rhizotomy. Dictated by: Marlys Robertson MD, PhD on 09/13/2022 at 14:07 Approved by: Marlys Robertson MD, PhD on 09/13/2022 at 14:08
[2022-09-13] MEDS: MIDAZOLAM 2 MG/2 ML VIAL IV (11:40)
[2022-09-13] MEDS: BUPIVACAINE 0.5% (PF) 30 ML VIAL 5 ML INJ (12:09)
[2022-09-13] MEDS: LIDOCAINE 1% (PF) 5 ML INJ (12:09)
[2022-09-13] MEDS: MIDAZOLAM 2 MG/2 ML VIAL 0.5 MG IV (12:14)
--- NOTE | 2022-09-13 12:29 | P.PCN_ITS ---
Date/Time/Diagnoses Date of procedure: 09/13/22 Time of procedure: 12:29 Pre-procedure diagnosis: 1. RECALCITRANT FACET ARTHROPATHY Post-procedure diagnosis: same Procedure Notes Procedure: 1. BILATERAL L3, L4 AND L5 MEDIAL BRANCH RADIOFREQUENCY NEUROTOMY Indications: Derrick is referred by Dr. Corral for treatment of facet arthropathy. Physician: Vern Alston Total Fluoroscopy time (seconds): 18 Total sedation minutes: 43 Complications: none Procedure in detail & Post-procedure care: DESCRIPTION OF PROCEDURE Bilateral L3, L4 and L5 medial branch radiofrequency neurotomy The patient is well known to this clinic having undergone previous facet injections with good but temporary relief. The patient has experienced appropriate, concordant relief with previous facet and median branch blocks but the patient's pain has been recalcitrant to further conservative measures. Therefore, based upon the patient's relief and persistent symptoms, the patient is considered an appropriate candidate for facet rhizotomy. All of the patient's questions regarding the risks versus benefits of the procedure, including, but not limited to, bleeding, infection, temporary as well as lasting nerve injury, paralysis, stroke, and , as well treatment alternatives were answered to satisfaction. After obtaining informed consent, denial of pertinent drug allergies, as well as being made aware of the potential risks of bleeding, infection, spinal cord trauma, paralysis, temporary and permanent nerve damage, seizure, stroke, and possible , the patient was brought to the fluoroscopy suite and positioned prone on the fluoroscopy table. The lumbar region was prepped with Betadine and covered with a fenestrated drape in the usual sterile fashion. Appropriate monitors applied including pulse ox imeter, pulse, and blood pressure for regular monitoring throughout the procedure. After review of previous anaesthesic history and IV conscious sedation the patient was deemed safe to proceed with today's procedure with IV conscious sedation as ASA class II designation. Safety time-out was performed to confirm patient ID, procedure to be performed and site of procedure. IV sedation was accomplished with a combination of 3mg of Versed administered by the RN after DO order, titrated to patient comfort during the course of the procedure while the patient remained responsive to all verbal commands. After local infiltration using 1% lidocaine, under fluoroscopic guidance, a 10- cm RF insulated needle with a 10-mm active tip was positioned parallel to the junction of the right the superior articulating process where the L5 medial branch resides. Needle placement was confirmed with motor stimulation of .5v on the right which produced local stimulation without radicular component. The stimulation was then increased to 2v with, once again, only local multifidus stimulation without radicular component. The needle was then removed and the identical procedure was performed along the length of the right L4 medial branch with motor stimulation at .7v on the right. The identical procedure was once again performed along the length of the right L3 and medial branch with motor stimulation of .5v on the right. The medial branches were then anesthetised with 0.5% marcaine. This was then followed by two discreet lesions performed at 80 degrees Celsius for 90 seconds each. The identical procedures were repeated on the left. The patient tolerated the procedure well without signs or symptoms of complications prior to transfer to the recovery area continued monitoring without incident. The patient was then transferred to the recovery area where they were observed for an appropriate period of time after the injection. The patient reported a VAS score of 9 prior to the procedure and a post-procedure VAS of 0. POST OP INSTRUCTIONS The patient was provided a Pain Log to continue to record the patient's response to the target-specific procedure prior to the patient's follow-up visit with the referring physician. Additionally, specific post-injection care instructions and a contact number to our office were provided if concerns arise regarding po ssible complications associated with the procedure are suspected.
== END 2022-09-13 12:49 | disposition home or self-care (01) ==
LOC: RAD 10:40
PROVIDERS: PCP Family Medicine; Referring Provider Physical Medicine & Rehabilitation; Visit Provider Physical Medicine & Rehabilitation
DX: M47.816 Spondylosis without myelopathy or radiculopathy, lumbar region (principal)
CPT/HCPCS: 64635; 64636; 99152; 99153; J2250

== ENCOUNTER 2023-01-12 12:45 | Outpatient (CLI) | payer MEDICARE, OTHER, MEDICAID, SELFPAY ==
[2023-01-12] VITALS (8 sets, daily range): BP systolic 97–116; BP diastolic 55–82; PULSE 75–81; RESP 15–20; TEMP 36.4; O2SAT 95–99
--- NOTE | 2023-01-12 12:50 | DI.RAD.S_ITS ---
PROCEDURE: PAIN L INTERLAMINAR/CAUDAL INJ INDICATIONS: SPONDYLOSIS COMPARISON: [facility], XA, PAIN L INTERLAMINAR/CAUDAL INJ, 10/05/2021, 11:13. FINDINGS: Fluoroscopic spot filming was performed to verify placement of a spinal needle at the L4-L5 level, as labeled on the films. Appropriate location of the needle tip was confirmed by injection of iodinated contrast. IMPRESSION: Intraprocedural examination within normal limits. Dictated by: Adi Bland M.D. on 01/12/2023 at 14:07 Approved by: Adi Bland M.D. on 01/12/2023 at 14:08
[2023-01-12] MEDS: MIDAZOLAM 2 MG/2 ML VIAL IV (14:05)
[2023-01-12] MEDS: DEXAMETHASONE 10 MG/ML VIAL 20 MG INJ (14:09)
[2023-01-12] MEDS: BETAMETHASONE 30 MG/5 ML MDV 6 MG INJ (14:09)
[2023-01-12] MEDS: IOPAMIDOL 15 ML VIAL 3 ML INJ (14:10)
[2023-01-12] MEDS: BUPIVACAINE 0.25% (PF) VIAL 2 ML INJ (14:10)
--- NOTE | 2023-01-12 14:19 | P.PCN_ITS ---
Date/Time/Diagnoses Date of procedure: 01/12/23 Time of procedure: 14:19 Pre-procedure diagnosis: 1. HNP WITH RADICULAR FEATURES, 2. MULTILEVEL CENTRAL STENOSIS, Post-procedure diagnosis: same Procedure Notes Procedure: 1. FLUOROSCOPICALLY GUIDED CONTRAST CONTROLLED INTERLAMINAR EPIDURAL STEROID INJECTION -L4/5 Indications: Derrick is referred by Dr. Corral for treatment of Bilateral Foraminal Stenosis R>L LE symptoms. Physician: Vern Alston Total Fluoroscopy time (seconds): 5 Total sedation minutes: 10 Complications: none Procedure in detail & Post-procedure care: FINDINGS Multilevel Central Spinal Stenosis with Nerve Root Compression DESCRIPTION OF PROCEDURE Fluoroscopically guided, contrast-controlled L4/5 translaminar epidural steroid injection. Following review of allergy and review of potential side effects and complications, including, but not necessarily limited to, infection, allergic reaction, local tissue breakdown, temporary as well as permanent nerve injury, paralysis, stroke and possible , the patient indicated that the patient understood and agreed to proceed. An informed consent document was signed by the patient, witnessed by a nurse, and placed in the patient's chart. Additionally, other treatment options including modalities, medications, and physical therapy were reviewed with the patient. After review of previous anaesthesic history and IV conscious sedation the patient was deemed safe to proceed with today?s procedure with IV conscious sedation as ASA class II designation. Safety time-out was performed to confirm patient ID, procedure to be performed and site of procedure. IV sedation was accomplished with a combination of 2mg of Versed was administered by the RN after DO order, titrated to patient comfort during the course of the procedure while the patient remained responsive to all verbal commands In the prone position, following sterile prep and drape of the lumbar region, the L4/5 translaminar space was identified fluoroscopically. The skin was anesthetized via a 25-gauge, 1.5inch needle with 1% lidocaine solution. At this point, a 22-gauge short bevel spinal needle was atraumatically introduced and advanced under fluoroscopic guidance into the region of the L4/5 translaminar space. Depth was confirmed on lateral view. Radiological data, including multiple fluoroscopic views of the lumbar spine, reveal a spinal needle at the L4/5 translaminar space. Lateral views then show placement of the needle in the epidural space. Subsequent views show contrast material flowing superiorly and inferiorly in the epidural space. No vascular or intrathecal uptake is observed. At this point, using loss of resistance technique with saline and air, the epidural space was entered. This was confirmed following negative aspiration with injection of approximately 1.5cc of Isovue 200, showing excellent epidural flow without vascular or intrathecal uptake. At this point, 1cc of 1% lidocaine solution combined with 3cc or 20mg of dexamethasone and 6mg betamethasone was injected without incident. The patient tolerated the procedure well without signs or symptoms of complications prior to transfer to the recovery area continued monitoring without incident. The patient was then transferred to the recovery area where they were observed for an appropriate period of time after the injection. The patient reported a VAS score of 6 prior to the procedure and a post- procedure VAS of 0. POST OP INSTRUCTIONS The patient was provided a Pain Log to continue to record their response to the target-specific procedure prior to follow-up visit with their referring physician. Additionally, specific post-injection care instructions and a contact number to our office were provided if concerns arise regarding possible complications associated with the procedure are suspected.
== END 2023-01-12 14:40 | disposition home or self-care (01) ==
PROVIDERS: PCP Family Medicine; Referring Provider Physical Medicine & Rehabilitation; Visit Provider Physical Medicine & Rehabilitation
DX: M51.16 Intervertebral disc disorders with radiculopathy, lumbar region (principal); M48.061 Spinal stenosis, lumbar region without neurogenic claudication
CPT/HCPCS: 62323; 99152; J0702; J1100; J2250; J3490

== ENCOUNTER → 2023-06-10 13:00 | Outpatient (CLI) | payer MEDICARE, OTHER, MEDICAID, SELFPAY ==
--- NOTE | 2023-06-10 13:02 | DI.MRI.S_ITS ---
PROCEDURE: MR LUMBAR SPINE WO CON INDICATIONS: Acute exacerbation of low back pain s/p fall 02/01/23 TECHNIQUE: Noncontrast sagittal T1 spin echo and T2 fast echo, sagittal STIR, and T2 fast spin echo through the lumbar spine. In cases with scoliosis, additional coronal T2 fast spin echo may be performed. COMPARISON: [facility], CR, XR LUMBAR SPINE 2 OR 3 VIEWS, 02/01/2023, 22:51. [facility], MR, MR LUMBAR SPINE WO CON, 06/15/2019, 15:22. FINDINGS: Image quality: Excellent. Alignment and Curvature: 5 lumbar type vertebral bodies are present by plain film. 2 mm of retrolisthesis of L4 on L5. Bone Marrow: Marrow is of normal overall signal. No acute vertebral body compression fractures. Mild reactive signal throughout the endplates of the lumbar spine, worst at L3-L4 and L4-L5. Spinal Cord: Conus medullaris terminates at the mid L1 level. Visualized cord demonstrates normal signal and size. Paraspinous Soft Tissues: No paravertebral masses. T12-L1: Mild disc desiccation. No significant canal nor foraminal stenosis. L1-L2: Mild disc desiccation. Mild facet and ligamentum flavum hypertrophy. No significant canal nor foraminal stenosis. L2-L3: Mild disc desiccation. Mild facet and ligamentum flavum hypertrophy. Mild epidural lipomatosis. Mild canal stenosis. Mild bilateral foraminal stenosis. L3-L4: Mild disc desiccation and diffuse disc bulge. Mild facet and ligamentum flavum hypertrophy. Mild canal stenosis. Mild bilateral foraminal stenosis. L4-L5: Mild disc desiccation and diffuse disc bulge. Mild facet and ligamentum flavum hypertrophy. Mild canal stenosis. Mild bilateral foraminal stenosis. L5-S1: Mild disc desiccation and diffuse disc bulge. Mild bilateral facet hypertrophy. Mild canal stenosis. Mild bilateral foraminal stenosis. IMPRESSION: 1. Multilevel degenerative disc and facet disease, as well as ligamentum flavum hypertrophy and epidural lipomatosis. 2. Mild multilevel canal and foraminal stenoses. No neural impingement. Dictated by: Melinda Landaverde M.D. on 06/12/2023 at 13:33 Approved by: Melinda Landaverde M.D. on 06/12/2023 at 13:35
== END ==
PROVIDERS: PCP Family Medicine; Referring Provider Physical Medicine & Rehabilitation; Visit Provider Physical Medicine & Rehabilitation
DX: M51.26 Other intervertebral disc displacement, lumbar region (principal); M51.36 Other intervertebral disc degeneration, lumbar region; M51.37 Other intervertebral disc degeneration, lumbosacral region; M47.816 Spondylosis without myelopathy or radiculopathy, lumbar region; M47.817 Spondylosis without myelopathy or radiculopathy, lumbosacral region; M48.061 Spinal stenosis, lumbar region without neurogenic claudication; M48.07 Spinal stenosis, lumbosacral region
CPT/HCPCS: 72148

== ENCOUNTER 2023-06-27 13:04 | Outpatient (CLI) | payer MEDICARE, OTHER, MEDICAID, SELFPAY ==
[2023-06-27] VITALS (8 sets, daily range): BP systolic 101–128; BP diastolic 57–72; PULSE 77–82; RESP 15–19; TEMP 36.1; O2SAT 96–98
--- NOTE | 2023-06-27 13:30 | DI.RAD.S_ITS ---
PROCEDURE: PAIN L/S TRANSFORAMINAL INJECT INDICATIONS: SPONDYLOSIS COMPARISON: [facility], XA, PAIN L/S TRANSFORAMINAL INJECT, 12/31/2020, 15:08. [facility], MR, MR LUMBAR SPINE WO CON, 06/10/2023, 13:15. FINDINGS: Fluoroscopic spot filming was performed to verify placement of a spinal needle at the L4-L5 level, as labeled on the films. Appropriate location of the needle tip was confirmed by injection of iodinated contrast. IMPRESSION: Intraprocedural examination within normal limits. Dictated by: Adi Bland M.D. on 06/27/2023 at 17:24 Approved by: Adi Bland M.D. on 06/27/2023 at 17:25
[2023-06-27] MEDS: MIDAZOLAM 2 MG/2 ML VIAL IV (13:51)
[2023-06-27] MEDS: BUPIVACAINE 0.25% (PF) VIAL 2 ML INJ (13:58)
[2023-06-27] MEDS: BETAMETHASONE 30 MG/5 ML MDV 6 MG INJ (13:58)
[2023-06-27] MEDS: DEXAMETHASONE 10 MG/ML VIAL INJ (13:59)
[2023-06-27] MEDS: iopamidoL 15 ML VIAL 3 ML INJ (13:59)
--- NOTE | 2023-06-27 14:05 | P.PCN_ITS ---
Date/Time/Diagnoses Date of procedure: 06/27/23 Time of procedure: 14:05 Pre-procedure diagnosis: 1. FORAMINAL STENOSIS WITH LE SYMPTOMS Post-procedure diagnosis: same Procedure Notes Procedure: 1. FLUOROSCOPICALLY GUIDED CONTRAST CONTROLLED TRANSFORAMINAL EPIDURAL STEROID INJECTION - RIGHT L4/5 TFESI Indications: Derrick is referred by Dr. Corral for treatment of Foraminal Stenosis with Right LE Symptoms Physician: Vern Alston Total Fluoroscopy time (seconds): 11 Total sedation minutes: 12 Complications: none Procedure in detail & Post-procedure care: FINDINGS Foraminal Nerve Root Compression secondary to disc disease and facet hypertrophy DESCRIPTION OF PROCEDURE Following review of allergy and review of potential side effects and complications, including, but not necessarily limited to, infection, allergic reaction, local tissue breakdown, stroke, temporary or permanent nerve injury, paralysis, and possible , the patient indicated that the patient understood and agreed to proceed. An informed consent document was signed by the patient, witnessed by a nurse, and placed in the patient's chart. Additionally, other treatment options including medications, modalities, and physical therapy were reviewed with the patient. After review of previous anaesthesic history and IV conscious sedation the patient was deemed safe to proceed with today?s procedure with IV conscious sedation as ASA class II designation. Safety time-out was performed to confirm patient ID, procedure to be performed and site of procedure. IV sedation was accomplished with a combination of 2mg of Versed was administered by the RN after DO order, titrated to patient comfort during the course of the procedure while the patient remained responsive to all verbal commands In the prone position following sterile prep and drape of the lumbar region, the right L4/5 posterior neuroforamen was identified fluoroscopically. The skin was anesthetized via a 25-gauge 1.5-inch needle with 1% lidocaine solution. At this point, a 25-gauge 3.5-inch spinal needle was atraumatically introduced and advanced under fluoroscopic guidance through the posterior right L4/5 neuroforamen to approximately the anterior aspect of the canal. Depth was confirmed on lateral view. Following negative aspiration, injection of approximately 1.5cc of Isovue 200 under live fluoroscopy in the AP view confirmed excellent flow along the nerve root, into the epidural space without vascular or intrathecal uptake observed Radiological data, including multiple fluoroscopic views of the lumbosacral s pine, reveal a spinal needle at the right L4/5 posterior neuroforamen. Subsequent views show flow of contrast material flowing superiorly and inferiorly along the nerve root confirming epidural flow. Subsequently, a test dose of 1.5 cc of 1% lidocaine solution was administered and patient was observed for two minutes for signs or symptoms of complications, including abdominal pain, shortness of breath, bilateral upper or lower extremity weakness, nausea and vomiting, prior to steroid injection. At this point, a total of 2cc or 10mg of dexamethasone and 6mg of betamethasone was injected without incident. The procedure tolerated the procedure well without signs or symptoms of complications prior to transfer to the recovery area continued monitoring without incident. The patient was then transferred to the recovery area where they were observed for an appropriate time after the injection. The patient reported a VAS score of 8 prior to the procedure and a post- procedure VAS of 1. POST OP INSTRUCTIONS The patient was provided a Pain Log to continue to record their response to the target-specific procedure prior to follow-up visit with their referring physician. Additionally, specific post-injection care instructions and a contact number to our office were provided if concerns arise regarding possible complications associated with the procedure are suspected.
== END 2023-06-27 14:25 | disposition home or self-care (01) ==
PROVIDERS: PCP Family Medicine; Referring Provider Physical Medicine & Rehabilitation; Visit Provider Physical Medicine & Rehabilitation
DX: M48.061 Spinal stenosis, lumbar region without neurogenic claudication (principal); M51.16 Intervertebral disc disorders with radiculopathy, lumbar region; M47.26 Other spondylosis with radiculopathy, lumbar region
CPT/HCPCS: 64483; 99152; J0702; J1100; J2250; J3490

== ENCOUNTER 2023-12-05 15:03 | Outpatient (CLI) | payer MEDICARE, OTHER, MEDICAID, SELFPAY ==
[2023-12-05] VITALS (8 sets, daily range): BP systolic 135–159; BP diastolic 75–97; PULSE 74–82; RESP 15–20; TEMP 36.6; O2SAT 97–100
--- NOTE | 2023-12-05 16:00 | DI.RAD.S_ITS ---
PROCEDURE: PAIN L/S FACET INJ/BLK 1ST LG INDICATIONS: BILATERAL L3, L4 L5 MBB-LA COMPARISON: [facility], , PAIN L/S FACET INJ/BLK 1ST LG, 05/31/2022, 13:41. FINDINGS: Fluoroscopic spot filming was performed to verify placement of spinal needles at the bilateral L3 through L5 level(s), as labeled on the films. Appropriate location(s) of the needle tip(s) was confirmed by injection of iodinated contrast. IMPRESSION: Fluoroscopic guidance for a medial branch block. Dictated by: David Snider M.D. on 12/06/2023 at 12:57 Approved by: David Snider M.D. on 12/06/2023 at 13:00
[2023-12-05] MEDS: MIDAZOLAM 2 MG/2 ML VIAL IV (16:24)
[2023-12-05] MEDS: iopamidoL 15 ML VIAL 3 ML INJ (16:29)
[2023-12-05] MEDS: BUPIVACAINE 0.5% (PF) 10 ML VIAL 5 ML INJ (16:31)
[2023-12-05] MEDS: LIDOCAINE 1% 20 ML 5 ML INJ (16:32)
--- NOTE | 2023-12-05 16:43 | PM.PROC.IR.1 ---
Date/Time/Diagnoses Date of procedure: 12/05/23 Time of procedure: 16:43 Pre-procedure diagnosis: FACET ARTHROPATHY Post-procedure diagnosis: same Procedure Notes Procedure: 1. BILATERAL L3, L4 AND L5 DIAGNOSTIC MB BLOCKS Indications: Derrick is referred by Dr. Corral for treatment of Bilateral Axial LBP. Physician: Vern Alston Total Fluoroscopy time (seconds): 11 Total sedation minutes: 15 Complications: none Procedure in detail & Post-procedure care: DESCRIPTION OF PROCEDURE Fluoroscopically guided, contrast-controlled bilateral L3, L4 AND L5 medial branch blocks with 0.5cc of 0.5% Marcaine. Following review of allergy and review of potential side effects and complications, including, but not necessarily limited to, infection, allergic reaction, local tissue breakdown, nerve injury, paralysis, stroke and possible , the patient indicated that the patient understood and agreed to proceed. An informed consent document was signed by the patient, witnessed by a nurse, and placed in the patient's chart. After review of previous anaesthesic history and IV conscious sedation the patient was deemed safe to proceed with today's procedure with IV conscious sedation as ASA class II designation. Safety time-out was performed to confirm patient ID, procedure to be performed and site of procedure. IV sedation was accomplished with a combination of 2mg of Versed was administered by the RN after DO order, titrated to patient comfort during the course of the procedure while the patient remained responsive to all verbal commands In the prone position, following sterile prep and drape of the lumbar region, the right L3, L4 AND L5 anatomical location of the medial branch of the dorsal ramus was identified fluoroscopically. Subsequently an anesthetic skin wheal using 1% lidocaine solution was initiated at each of the anatomical spots. Subsequently then a 22-gauge 3.5-inch spinal needle was atraumatically introduced and advanced under fluoroscopic guidance at each of the corresponding sites at the right L3, L4 and L5 MB. After negative aspiration, 0.2cc of Isovue 200 was injected, confirming placement without vascular or intrathecal uptake. Subsequently then 0.5cc of 0.5% Marcaine solution was injected at each of the corresponding sites at the right L3, L4 and L5 medial branch locations. The identical procedure was replicated on the left. The patient tolerated the procedure well without signs or symptoms of complications. The patient tolerated the procedure well without signs or symptoms of complications prior to transfer to the recovery area continued monitoring without incident. Post-procedure, the patient was monitored initiating provocative activities to measure the amount of relief from block of the facetogenic pain. The patient reported a VAS of 8 prior to the procedure and a post-procedure VAS of 1. It has been a pleasure to assist in the diagnostic and therapeutic care of your patient. POST OP INSTRUCTIONS The patient was provided with a Pain Log to complete over the next several hours and subsequent days prior to the patient's follow up with the ordering physician. If the patient has director of fundraising relief to the solution applied, then they may be a candidate for medial branch rhizotomy. The patient is aware, was provided, once again, with a Pain Log and will follow up with the referring physician for review and clinical correlation
--- NOTE | 2023-12-06 13:02 | PC.NURSE ---
Post-procedure call: Left voicemail. Directed to call clinic with any questions and concerns.
== END 2023-12-05 17:03 | disposition home or self-care (01) ==
PROVIDERS: PCP Family Medicine; Referring Provider Physical Medicine & Rehabilitation; Visit Provider Physical Medicine & Rehabilitation
DX: M47.816 Spondylosis without myelopathy or radiculopathy, lumbar region (principal)
CPT/HCPCS: 64491; 64493; 64494; 99152; J2250

== ENCOUNTER 2024-05-30 13:02 | Outpatient (CLI) | payer MEDICARE, OTHER, MEDICAID, SELFPAY ==
[2024-05-30] VITALS (8 sets, daily range): BP systolic 122–148; BP diastolic 71–92; PULSE 71–76; RESP 16–20; TEMP 35.9; O2SAT 98–100
--- NOTE | 2024-05-30 13:30 | DI.RAD.S_ITS ---
PROCEDURE: PAIN L/S FACET INJ/BLK 1ST LG INDICATIONS: SPONDYLOSIS COMPARISON: [facility], , PAIN L/S FACET INJ/BLK 1ST LG, 12/05/2023, 16:28. FINDINGS: Fluoroscopic spot filming was performed to verify placement of spinal needles at the bilateral L3, L4, L5 level(s), as labeled on the films. Appropriate location(s) of the needle tip(s) was confirmed by injection of iodinated contrast. IMPRESSION: Intraoperative guidance provided. Dictated by: Guido Dupree M.D. on 05/30/2024 at 15:47 Approved by: Guido Dupree M.D. on 05/30/2024 at 15:50
[2024-05-30] MEDS: MIDAZOLAM 2 MG/2 ML VIAL IV (14:26)
[2024-05-30] MEDS: iopamidoL 15 ML VIAL 3 ML INJ (14:31)
[2024-05-30] MEDS: LIDOCAINE 2% INJ MDV 20ML 5 ML INJ (14:31)
[2024-05-30] MEDS: LIDOCAINE 1% 20 ML 5 ML INJ (14:32)
--- NOTE | 2024-05-30 14:50 | P.PCN_ITS ---
Date/Time/Diagnoses Date of procedure: 05/30/24 Time of procedure: 14:50 Pre-procedure diagnosis: 1. FACET ARTHROPATHY Post-procedure diagnosis: same Procedure Notes Procedure: 1. BILATERAL L3, L4 AND L5 DIAGNOSTIC MB BLOCKS SA Indications: Derrick is referred by Dr. Corral for treatment of Bilateral Axial LBP. Physician: Vern Alston Total Fluoroscopy time (seconds): 8 Total sedation minutes: 20 Complications: none Procedure in detail & Post-procedure care: DESCRIPTION OF PROCEDURE Fluoroscopically guided, contrast-controlled bilateral L3, L4 and L5 medial branch blocks with 0.5cc of 2% Lidocaine. Following review of allergy and review of potential side effects and complications, including, but not necessarily limited to, infection, allergic reaction, local tissue breakdown, nerve injury, paralysis, stroke and possible , the patient indicated that the patient understood and agreed to proceed. An informed consent document was signed by the patient, witnessed by a nurse, and placed in the patient's chart. After review of previous anaesthesic history and IV conscious sedation the patient was deemed safe to proceed with today's procedure with IV conscious sedation as ASA class II designation. Safety time-out was performed to confirm patient ID, procedure to be performed and site of procedure. IV sedation was accomplished with a combination of 2mg of Versed was administered by the RN after DO order, titrated to patient comfort during the course of the procedure while the patient remained responsive to all verbal commands In the prone position, following sterile prep and drape of the lumbar region, the right L3, L4 and L5 anatomical location of the medial branch of the dorsal ramus was identified fluoroscopically. Subsequently an anesthetic skin wheal using 1% lidocaine solution was initiated at each of the anatomical spots. Subsequently then a 22-gauge 3.5-inch spinal needle was atraumatically introduced and advanced under fluoroscopic guidance at each of the corresponding sites at the right L3, L4 and L5 MB. After negative aspiration, 0.2cc of Isovue 200 was injected, confirming placement without vascular or intrathecal uptake. Subsequently then 0.5cc of 2% Lidocaine solution was injected at each of the corresponding sites at the right L3, L4 and L5 medial branch locations. The identical procedure was replicated on the left. The patient tolerated the procedure well without signs or symptoms of complications. The patient tolerated the procedure well without signs or symptoms of complications prior to transfer to the recovery area continued monitoring without incident. Post-procedure, the patient was monitored initiating provocative activities to measure the amount of relief from block of the facetogenic pain. The patient reported a VAS of 7 prior to the procedure and a post-procedure VAS of 1. It has been a pleasure to assist in the diagnostic and therapeutic care of your patient. POST OP INSTRUCTIONS The patient was provided with a Pain Log to complete over the next several hours and subsequent days prior to the patient's follow up with the ordering physician. If the patient has habilitation worker relief to the solution applied, then they may be a candidate for medial branch rhizotomy. The patient is aware, was provided, once again, with a Pain Log and will follow up with the referring physician for review and clinical correlation
== END 2024-05-30 15:05 | disposition home or self-care (01) ==
PROVIDERS: PCP Family Medicine; Referring Provider Physical Medicine & Rehabilitation; Visit Provider Physical Medicine & Rehabilitation
DX: M47.816 Spondylosis without myelopathy or radiculopathy, lumbar region (principal)
CPT/HCPCS: 64493; 64494; 99152; J2250

== ENCOUNTER 2024-07-23 10:48 | Outpatient (CLI) | payer MEDICARE, OTHER, MEDICAID, SELFPAY ==
[2024-07-23] VITALS (13 sets, daily range): BP systolic 127–161; BP diastolic 73–98; PULSE 64–72; RESP 12–18; TEMP 36.2; O2SAT 97–99
--- NOTE | 2024-07-23 10:51 | DI.RAD.S_ITS ---
PROCEDURE: PAIN L/S MED/LAT N RFA BILAT INDICATIONS: Bilateral L3, L4 and L5 MB RFA COMPARISON: [facility], , PAIN L/S MED/LAT N RFA BILAT, 09/13/2022, 12:53. FINDINGS/IMPRESSION: Fluoroscopic spot filming was performed to verify placement of spinal needles at the bilateral L3, L4 and L5 level(s), as labeled on the films. Appropriate location(s) of the needle tip(s) was confirmed by injection of iodinated contrast. Dictated by: Saurav Deutsch M.D. on 07/23/2024 at 15:41 Approved by: Saurav Deutsch M.D. on 07/23/2024 at 15:42
[2024-07-23] MEDS: MIDAZOLAM 2 MG/2 ML VIAL IV (11:50)
[2024-07-23] MEDS: MIDAZOLAM 2 MG/2 ML VIAL 1 MG IV ×2 (11:55→12:16)
[2024-07-23] MEDS: BUPIVACAINE 0.5% (PF) 10 ML VIAL 5 ML INJ (11:59)
[2024-07-23] MEDS: LIDOCAINE 1% 20 ML 5 ML INJ (11:59)
--- NOTE | 2024-07-23 12:38 | P.PCN_ITS ---
Date/Time/Diagnoses Date of procedure: 07/23/24 Time of procedure: 12:38 Pre-procedure diagnosis: 1. RECALCITRANT FACET ARTHROPATHY Post-procedure diagnosis: same Procedure Notes Procedure: 1. BILATERAL L3, L4 AND L5 MEDIAL BRANCH RADIOFREQUENCY NEUROTOMY Indications: Derrick is referred by Dr. Corral for treatment of facet arthropathy. Physician: Vern Alston Total Fluoroscopy time (seconds): 21 Total sedation minutes: 42 Complications: none Procedure in detail & Post-procedure care: DESCRIPTION OF PROCEDURE Bilateral L3, L4 and L5 medial branch radiofrequency neurotomy The patient is well known to this clinic having undergone previous facet injections with good but temporary relief. The patient has experienced appropriate, concordant relief with previous facet and median branch blocks but the patient's pain has been recalcitrant to further conservative measures. Therefore, based upon the patient's relief and persistent symptoms, the patient is considered an appropriate candidate for facet rhizotomy. All of the patient's questions regarding the risks versus benefits of the procedure, including, but not limited to, bleeding, infection, temporary as well as lasting nerve injury, paralysis, stroke, and , as well treatment alternatives were answered to satisfaction. After obtaining informed consent, denial of pertinent drug allergies, as well as being made aware of the potential risks of bleeding, infection, spinal cord trauma, paralysis, temporary and permanent nerve damage, seizure, stroke, and possible , the patient was brought to the fluoroscopy suite and positioned prone on the fluoroscopy table. After review of previous anaesthesic history and IV conscious sedation the patient was deemed safe to proceed with today's procedure with IV conscious sedation as ASA class II designation. Safety time-out was performed to confirm patient ID, procedure to be performed and site of procedure. IV sedation was accomplished with a combination of 4mg of Versed administered by the RN after DO order, titrated to patient comfort during the course of the procedure while the patient remained responsive to all verbal commands. The lumbar region was prepped in usual sterile fashion and covered with a fenestrated drape in the usual sterile fashion. Appropriate monitors applied including pulse oximeter, pulse, and blood pressure for regular monitoring throughout the procedure. After local infiltration using 1% lidocaine, under fluoroscopic guidance, a 10- cm RF insulated needle with a 10-mm active tip was positioned parallel to the junction of the right the superior articulating process where the L5 medial branch resides. Needle placement was confirmed with motor stimulation of .5v on the right which produced local stimulation without radicular component. The stimulation was then increased to 2v with, once again, only local multifidus stimulation without radicular component. The needle was then removed and the identical procedure was performed along the length of the right L4 medial branch with motor stimulation at .7v on the right. The identical procedure was once again performed along the length of the right L3 and medial branch with motor stimulation of .5v on the right. The medial branches were then anesthetised with 0.5% marcaine. This was then followed by two discreet lesions performed at 80 degrees Celsius for 90 seconds each. The identical procedures were repeated on the left. The patient tolerated the procedure well without signs or symptoms of complications prior to transfer to the recovery area continued monitoring with out incident. The patient was then transferred to the recovery area where they were observed for an appropriate period of time after the injection. The patient reported a VAS score of 9 prior to the procedure and a post-procedure VAS of 0. POST OP INSTRUCTIONS The patient was provided a Pain Log to continue to record the patient's response to the target-specific procedure prior to the patient's follow-up visit with the referring physician. Additionally, specific post-injection care instructions and a contact number to our office were provided if concerns arise regarding possible complications associated with the procedure are suspected.
== END 2024-07-23 12:55 | disposition home or self-care (01) ==
PROVIDERS: PCP Family Medicine; Referring Provider Physical Medicine & Rehabilitation; Visit Provider Physical Medicine & Rehabilitation
DX: M47.816 Spondylosis without myelopathy or radiculopathy, lumbar region (principal)
CPT/HCPCS: 64635; 64636; 99152; 99153; J2250

== ENCOUNTER → 2024-09-23 11:50 | Outpatient (CLI) | payer MEDICARE, OTHER, MEDICAID, SELFPAY ==
--- NOTE | 2024-09-23 11:54 | DI.RAD.S_ITS ---
PROCEDURE: XR CERVICAL SPINE 4V OR 5V INDICATIONS: cervical djd TECHNIQUE: 5 views of the cervical spine acquired. COMPARISON: None. FINDINGS: Bones: No fractures or dislocations to the T1 level. Loss of lordosis which could be related to muscle spasm, rigidity or simply positional. Mild endplate sclerosis and spurring at the C5-C6, C6-C7 and C7-T1 levels mild multilevel mid and lower cervical spine facet joint arthropathy. Mild multilevel uncovertebral hypertrophy. Oblique images demonstrate no significant bony foraminal stenoses. Soft tissues: No prevertebral soft tissue swelling. IMPRESSION: Loss of lordosis and mild multilevel cervical spine spondylosis. Dictated by: Scar LYNCH Interpreted: Harrison Camarillo MD on 09/23/2024 at 13:04 Transcribed by: J LUIS on 09/23/2024 at 13:05 Approved by: Harrison Camarillo M.D. on 09/24/2024 at 7:58
== END ==
PROVIDERS: PCP Family Medicine; Referring Provider Physical Medicine & Rehabilitation; Visit Provider Physical Medicine & Rehabilitation
DX: M47.812 Spondylosis without myelopathy or radiculopathy, cervical region (principal); M47.816 Spondylosis without myelopathy or radiculopathy, lumbar region; M25.551 Pain in right hip; M17.2 Bilateral post-traumatic osteoarthritis of knee; M51.26 Other intervertebral disc displacement, lumbar region; M75.42 Impingement syndrome of left shoulder; G89.4 Chronic pain syndrome; Z87.828 Personal history of other (healed) physical injury and trauma
CPT/HCPCS: 72050; 99214

== ENCOUNTER → 2024-09-27 12:50 | Outpatient (CLI) | payer MEDICARE, OTHER, MEDICAID, SELFPAY ==
--- NOTE | 2024-09-27 12:52 | DI.MRI.S_ITS ---
PROCEDURE: MR CERVICAL SPINE WO CON INDICATIONS: Cervical Radiculopathy TECHNIQUE: Noncontrast sagittal T1 spin echo and T2 fast spin echo, sagittal STIR, foraminal oblique sagittal T2 fast spin echo, and axial gradient echo or T2 fast spin echo through the cervical spine. COMPARISON: [facility], CR, XR CERVICAL SPINE 4V OR 5V, 09/23/2024, 12:23. FINDINGS: Image quality: Diagnostic, with note made of motion artifact. Alignment and Curvature: There is normal bony alignment. Bone Marrow: Marrow demonstrates normal overall signal. Spinal Cord: Visualized spinal cord has normal size and signal. No cerebellar tonsillar herniation. Paraspinous Soft Tissues: No paravertebral masses. Prevertebral soft tissues are normal in thickness. C2-C3: The disc height is well-preserved. Loss of disc signal is seen at this level. Moderate generalized disc osteophyte complex is seen. Moderate facet joint hypertrophy is seen. There is [id number] left-sided and at least moderate right-sided neural foraminal narrowing. No central canal narrowing is seen. C3-C4: The disc height is well-preserved. Loss of disc signal is seen at this level. Moderate generalized disc osteophyte complex is seen. At least moderate facet hypertrophy is seen. There is at least moderate bilateral neural foraminal narrowing. Minimal central canal narrowing is seen. C4-C5: The disc height is well-preserved. Loss of disc signal is seen at this level. A mild degree of generalized disc osteophyte complex is seen. At least moderate facet hypertrophy is seen. There is at least moderate right-sided and moderate left-sided neural foraminal narrowing. Minimal central canal narrowing is seen. C5-C6: The disc height is well-preserved. Loss of disc signal is seen at this level. Moderate generalized disc osteophyte complex is seen. Moderate facet joint hypertrophy is seen. Moderate bilateral neural foraminal narrowing can be seen, right worse than left. Mild central canal narrowing is seen. C6-C7: The disc height is well-preserved. Loss of disc signal is seen at this level. A mild degree of generalized disc osteophyte complex is seen. Mild facet joint hypertrophy is seen. There is moderate left-sided and no right-sided neural foraminal narrowing. Mild to moderate central canal narrowing is seen, with minimal mass effect upon the ventral spinal cord. C7-T1: No significant abnormality is seen. IMPRESSION: Multiple levels of cervical spine degenerative change can be seen, which are overall worst at the C6-C7 level. Dictated by: Adi Bland M.D. on 09/27/2024 at 21:26 Approved by: Adi Bland M.D. on 09/27/2024 at 21:30
== END ==
PROVIDERS: PCP Family Medicine; Referring Provider Physical Medicine & Rehabilitation; Visit Provider Physical Medicine & Rehabilitation
DX: M47.812 Spondylosis without myelopathy or radiculopathy, cervical region (principal); M47.816 Spondylosis without myelopathy or radiculopathy, lumbar region
CPT/HCPCS: 72141

== ENCOUNTER 2024-10-24 09:09 | Outpatient (CLI) | payer MEDICARE, OTHER, MEDICAID, SELFPAY ==
[2024-10-24] VITALS (9 sets, daily range): BP systolic 136–161; BP diastolic 80–98; PULSE 59–72; RESP 14–16; TEMP 36.2; O2SAT 98–100
[2024-10-24] MEDS: MIDAZOLAM 2 MG/2 ML VIAL IV (10:09)
[2024-10-24] MEDS: BUPIVACAINE 0.25% (PF) VIAL 30 ML INJ (10:15)
[2024-10-24] MEDS: iopamidoL 15 ML VIAL 3 ML INJ (10:16)
[2024-10-24] MEDS: DEXAMETHASONE 10 MG/ML VIAL 30 MG INJ (10:16)
--- NOTE | 2024-10-24 10:36 | P.PCN_ITS ---
Date/Time/Diagnoses Date of procedure: 10/24/24 Time of procedure: 10:36 Pre-procedure diagnosis: 1. CERVICAL STENOSIS, 2. CERVICAL HNP WITH UPPER EXTREMITY RADICULAR FEATURES Post-procedure diagnosis: same Procedure Notes Procedure: 1. FLUORSCOPICALLY GUIDED CONTRAST CONTROLLED INTERLAMINAR EPIDURAL STEROID INJECTION - C6/7 TL HERNANDEZ Indications: Derrick is referred by Dr. Corral for treatment of Cervical HNP with Upper Extremity Paresthesias. Physician: Vern Alston Total Fluoroscopy time (seconds): 34 Total sedation minutes: 19 Complications: none Procedure in detail & Post-procedure care: FINDINGS Cervical Stenosis due to disc deterioration and nerve root irritation and nerve root irritation DESCRIPTION OF PROCEDURE Fluoroscopically guided, contrast-controlled C6/7 translaminar epidural steroid injection with conscious sedation. Following review of allergy and review of potential side effects and complications, including, but not necessarily limited to, infection, allergic reaction, local tissue breakdown, temporary as well as permanent nerve injury, stroke, paralysis, and possible , the patient indicated that patient understood and agreed to proceed. An informed consent document was signed by the patient, witnessed by a nurse, and placed in the patient's chart. Additionally, other treatment options including modalities, medications, and physical therapy were reviewed with the patient. After review of previous anaesthesic history and IV conscious sedation the patient was deemed safe to proceed with today?s procedure with IV conscious ching tion as ASA class II designation. Safety time-out was performed to confirm patient ID, procedure to be performed and site of procedure. IV sedation was accomplished with a combination of 2mg of Versed administered by the RN after DO order, titrated to patient comfort during the course of the procedure while the patient remained responsive to all verbal commands. In the prone position, following sterile prep and drape of the cervical region, the C6/7 translaminar space was identified fluoroscopically. The skin was anesthetized via a 25-gauge 1.5-inch needle with 1% lidocaine solution. At this point, a 25-gauge, 2.5-inch short bevel spinal needle was atraumatically introduced and advanced under fluoroscopic guidance into epidural space at the C6/7 translaminar space. Depth was confirmed on lateral view. Radiological data, including multiple fluoroscopic views of the cervical spine, reveal a spinal needle at the C6/7 translaminar space. Lateral views then show placement of the needle in the epidural space. Subsequent views show contrast material flowing superiorly and inferiorly in the epidural space. DSA fluoroscopy with live contrast injection, once again, confirmed no vascular or intrathecal uptake. At this point, using loss of resistance technique with saline and air, the epidural space was entered. Following negative aspiration, injection of approximately 1.5 cc of Isovue-200 with live fluoroscopy in the AP view confirmed epidural flow in the epidural space without vascular or intrathecal uptake observed. Subsequently, a test dose of 1 cc of 1% lidocaine solution was injected and patient was observed for two minutes without signs or symptoms of complications, including abdominal pain, shortness of breath, bilateral upper or lower extremity weakness, nausea and vomiting, prior to steroid injection. At this point, 3cc or 30mg of dexamethasone was then injected without incident. The patient tolerated the procedure well without signs or symptoms of com plications prior to being transferred to the recovery area for further monitoring, The patient was then transferred to the recovery area where they were observed for an appropriate period of time after the injection. The patient reported a VAS score of 6 prior to the procedure and a post-procedure VAS of 0. POST OP INSTRUCTIONS The patient was provided a Pain Log to continue to record their response to the target-specific procedure prior to follow-up visit with the referring provider. Additionally, specific post-injection care instructions and a contact number to our office were provided if concerns arise regarding possible complications associated with the procedure are suspected.
== END 2024-10-24 10:45 | disposition home or self-care (01) ==
LOC: RAD 09:11
PROVIDERS: PCP Family Medicine; Referring Provider Physical Medicine & Rehabilitation; Visit Provider Physical Medicine & Rehabilitation
DX: M48.02 Spinal stenosis, cervical region (principal); M50.123 Cervical disc disorder at C6-C7 level with radiculopathy
CPT/HCPCS: 62321; 99152; J1100; J2250

== ENCOUNTER 2025-02-04 08:57 | Outpatient (CLI) | payer MEDICARE, OTHER, MEDICAID, SELFPAY ==
[2025-02-04] VITALS (8 sets, daily range): BP systolic 107–142; BP diastolic 64–78; PULSE 66–74; RESP 14–20; TEMP 36.4; O2SAT 96–100
[2025-02-04] MEDS: MIDAZOLAM 2 MG/2 ML VIAL IV (09:51)
[2025-02-04] MEDS: BUPIVACAINE 0.25% (PF) VIAL 2 ML INJ (09:57)
[2025-02-04] MEDS: DEXAMETHASONE 10 MG/ML VIAL 30 MG INJ (09:57)
--- NOTE | 2025-02-04 10:13 | P.PCN_ITS ---
Date/Time/Diagnoses Date of procedure: 02/04/25 Time of procedure: 10:14 Pre-procedure diagnosis: 1. CERVICAL STENOSIS, 2. CERVICAL HNP WITH UPPER EXTREMITY RADICULAR FEATURES Post-procedure diagnosis: same Procedure Notes Procedure: 1. FLUORSCOPICALLY GUIDED CONTRAST CONTROLLED INTERLAMINAR EPIDURAL STEROID INJECTION - C6/7 TL HERNANDEZ Indications: Derrick is referred by Dr. Corral for treatment of Cervical HNP with Upper Extremity Paresthesias. Physician: Vern Alston Total Fluoroscopy time (seconds): 31 Total sedation minutes: 17 Complications: none Procedure in detail & Post-procedure care: FINDINGS Cervical Stenosis due to disc deterioration and nerve root irritation and nerve root irritation DESCRIPTION OF PROCEDURE Fluoroscopically guided, contrast-controlled C6/7 translaminar epidural steroid injection with conscious sedation. Following review of allergy and review of potential side effects and complications, including, but not necessarily limited to, infection, allergic reaction, local tissue breakdown, temporary as well as permanent nerve injury, stroke, paralysis, and possible , the patient indicated that patient understood and agreed to proceed. An informed consent document was signed by the patient, witnessed by a nurse, and placed in the patient's chart. Additionally, other treatment options including modalities, medications, and physical therapy were reviewed with the patient. After review of previous anaesthesic history and IV conscious sedation the patient was deemed safe to proceed with today?s procedure with IV conscious ching tion as ASA class II designation. Safety time-out was performed to confirm patient ID, procedure to be performed and site of procedure. IV sedation was accomplished with a combination of 2mg of Versed administered by the RN after DO order, titrated to patient comfort during the course of the procedure while the patient remained responsive to all verbal commands. In the prone position, following sterile prep and drape of the cervical region, the C6/7 translaminar space was identified fluoroscopically. The skin was anesthetized via a 25-gauge 1.5-inch needle with 1% lidocaine solution. At this point, a 25-gauge, 2.5-inch short bevel spinal needle was atraumatically introduced and advanced under fluoroscopic guidance into epidural space at the C6/7 translaminar space. Depth was confirmed on lateral view. Radiological data, including multiple fluoroscopic views of the cervical spine, reveal a spinal needle at the C6/7 translaminar space. Lateral views then show placement of the needle in the epidural space. Subsequent views show contrast material flowing superiorly and inferiorly in the epidural space. DSA fluoroscopy with live contrast injection, once again, confirmed no vascular or intrathecal uptake. At this point, using loss of resistance technique with saline and air, the epidural space was entered. Following negative aspiration, injection of approximately 1.5 cc of Isovue-200 with live fluoroscopy in the AP view confirmed epidural flow in the epidural space without vascular or intrathecal uptake observed. Subsequently, a test dose of 1 cc of 1% lidocaine solution was injected and patient was observed for two minutes without signs or symptoms of complications, including abdominal pain, shortness of breath, bilateral upper or lower extremity weakness, nausea and vomiting, prior to steroid injection. At this point, 3cc or 30mg of dexamethasone was then injected without incident. The patient tolerated the procedure well without signs or symptoms of com plications prior to being transferred to the recovery area for further monitoring, The patient was then transferred to the recovery area where they were observed for an appropriate period of time after the injection. The patient reported a VAS score of 6 prior to the procedure and a post-procedure VAS of 0. POST OP INSTRUCTIONS The patient was provided a Pain Log to continue to record their response to the target-specific procedure prior to follow-up visit with the referring provider. Additionally, specific post-injection care instructions and a contact number to our office were provided if concerns arise regarding possible complications associated with the procedure are suspected.
== END 2025-02-04 10:25 | disposition home or self-care (01) ==
LOC: RAD 08:58
PROVIDERS: PCP Family Medicine; Referring Provider Physical Medicine & Rehabilitation; Visit Provider Physical Medicine & Rehabilitation
DX: M48.02 Spinal stenosis, cervical region (principal); M50.123 Cervical disc disorder at C6-C7 level with radiculopathy
CPT/HCPCS: 62321; 99152; J1100; J2250

== ENCOUNTER → 2025-05-07 09:09 | Outpatient (CLI) | payer MEDICARE, OTHER, MEDICAID, SELFPAY ==
--- NOTE | 2025-05-07 09:11 | DI.RAD.S_ITS ---
PROCEDURE: XR SHOULDER LT MIN 2V INDICATIONS: progressive decreased painful rom TECHNIQUE: Three views of the left shoulder were acquired. COMPARISON: Located Within [facility], CR, XR SHOULDER LT MIN 2V, 10/27/2021, 12:59. FINDINGS: Bones: 1 cm bone island is present the scapula near the coracoid process base Acromioclavicular and glenohumeral joints: Severe acromioclavicular and moderate glenohumeral degeneration appreciated . Soft tissues: No soft tissue swelling, calcification or mass. IMPRESSION: Degeneration Dictated by: Jorden Obrien M.D. on 05/08/2025 at 13:28 Approved by: Jorden Obrien M.D. on 05/08/2025 at 13:29
== END ==
PROVIDERS: PCP Family Medicine; Referring Provider Physical Medicine & Rehabilitation; Visit Provider Physical Medicine & Rehabilitation
DX: M75.42 Impingement syndrome of left shoulder (principal); M19.012 Primary osteoarthritis, left shoulder; M54.12 Radiculopathy, cervical region; M47.817 Spondylosis without myelopathy or radiculopathy, lumbosacral region; M51.26 Other intervertebral disc displacement, lumbar region; M25.512 Pain in left shoulder; G89.4 Chronic pain syndrome; Z87.828 Personal history of other (healed) physical injury and trauma
CPT/HCPCS: 73030; 99214